=== PATIENT | female | born 1940 | race Caucasian/White ===

== ENCOUNTER 2016-11-23 08:27 | Inpatient (IN) | payer MEDICARE, OTHER ==
[~2016-11-23] VITALS: Ht 154.9 cm; Wt 85.7 kg
[~2016-11-23 08:27] MED LIST: CARV12.5 PO; FURO-570 PO; HYDR-4446 PO; INSU100S45 SUBQ
[2016-11-23 08:28] VITALS: BP 154/56
--- NOTE | 2016-11-23 08:35 | NUR ---
PT WHEELCHAIR ASSISTED TO BED 2 AT THIS TIME.
--- NOTE | 2016-11-23 08:40 | NUR ---
DR. GARCIA AT BEDSIDE,RT AND EMT FOR EKG AT BEDSIDE ALSO
--- NOTE | 2016-11-23 08:41 | NUR ---
PATIENT PRESENTS TO ED DUE SOB X YESTERDAY---USE +ACCESSORY MUSCLE USE AND CLAVICULAR MUSCLE, PUT PT ON O2 , PER PT SHE USE OXYGEN AT HOME LAST MONTH ADMITTED AT [facility] FOR SAME SYMPTOMS, NOTED MULTIPLE SCRATCHES ON RIGHT AND LEFT SHOULDER AND LOWER EXTREMITIES HX DM AND CHF ,AND HTN,DENIES N/V/D; SKIN IS PINK/WARM/DRY; AAOX4 WITH EVEN AND STEADY GAIT; LUNGS CLEAR BL; HR EVEN AND REGULAR; PT DENIES ANY FEVER, CP,AT THIS TIME; PATIENT STATES PAIN OF 0/10 AT THIS TIME; PATIENT POSITIONED FOR COMFORT; HOB ELEVATED; BEDRAILS UP X2; BED DOWN. XRAY AT BEDSIDE
[2016-11-23] MEDS ORDERED: NITROGLYCERIN 2% 1 GM PKT TP ONE (08:45)
[2016-11-23] MEDS ORDERED: methylPREDNISolone SS 125 MG/2 ML VIAL IVP ONE (08:45)
[2016-11-23] MEDS ORDERED: IPRATROPIUM 0.02% 0.5 MG/2.5 ML NEBU INH ONE (08:45)
[2016-11-23] MEDS ORDERED: ASPIRIN 81 MG TAB.CHEW PO ONE (08:45)
[2016-11-23] MEDS ORDERED: ALBUTEROL 0.083% 2.5 MG/3 ML NEBU INH ONE ×2 (08:45→10:15)
[2016-11-23 08:52] VITALS: BP 163/82
--- NOTE | 2016-11-23 08:52 | NUR ---
PT PLACED ON VISION BIPAP PER DR GARCIA FOR RESP DISTRESS DESATURATION ON ST 12\5 RR 14 FIO2 60 ALARMS ARE ON AND FUNCTIONAL BS IINSP WHHEZE I\L HHN GIVEN WITH 5MG ALBUTERL AND 0.5 MG ATROVENT BIPAP PLUGGED INTO RED OUTLET PT IN HF AWAKE WEARING F\F MASK SIZE LG GEL UNDER MASK
[2016-11-23 08:53] LABS: BLOOD GAS PH 7.299 (7.35-7.45)
[2016-11-23 08:54] LABS: BLOOD GAS BASE EXCESS -1.2 mmol/L (-2.0-2.0); BLOOD GAS HCO3 26.4 mmol/L
[2016-11-23 08:56] LABS: BLOOD GAS O2 SAT% 79.8 % (92.0-98.5)
--- NOTE | 2016-11-23 09:01 | NUR ---
ASKED PT IF SHE CAN GIVE ME URINE PER PT SHE JUST WENT TO THE BATHROOM BEFORE COMING, WILL INFORM DR. GARCIA.
--- NOTE | 2016-11-23 09:14 | NUR ---
PT ON BIPAP AT THIS TIME, DAUGHTER AT BEDSIDE, PT FITZO, SLIGHTLY SLEEPY AT THIS TIME, CLAIMED I FEEL MUCH BETTER, STILL WITH LABORED BREATHING.
--- NOTE | 2016-11-23 09:16 | NUR ---
DECREASED FIO2 TO [address] GARCIA INFORMED
--- NOTE | 2016-11-23 09:18 | NUR ---
DR. JOSE FUENTES PT UNABLE TO GIVE URINE AT THIS TIME.
[2016-11-23 09:19] LABS: HEMATOCRIT 48.7 % (36-48); HEMOGLOBIN 16.1 g/dL (12.0-16.0); MEAN CORPUSCULAR HEMOGLOBIN 28 pg (27-31); MEAN CORPUSCULAR HGB CONC 33 g/dL (33-37); MEAN CORPUSCULAR VOLUME 85 fL (80-94); PLATELET COUNT (AUTO) 226 K/uL (140-450); RED BLOOD CELL COUNT(AUTO) 5.75 MIL/uL (4.20-5.40); RED CELL DISTRIBUTION WIDTH 13.8 % (11.6-13.7); WHITE BLOOD COUNT (AUTO) 15.7 K/uL (4.8-10.8)
[2016-11-23 09:30] LABS: BAND % (MANUAL) 3 % (0-8); EOSINOPHILS % (MANUAL) 3 % (0-4); LYMPHOCYTES % (MANUAL) 8 % (20-46); MONOCYTES % (MANUAL) 3 % (5-12); NEUTROPHILS % (MANUAL) 83 (43-65)
[2016-11-23 09:41] LABS: LACTIC ACID 1.3 mmol/L (0.4-2.0)
--- NOTE | 2016-11-23 09:42 | NUR ---
PT EYES OPEN ON BIPAP WELL TOLERATED, STILL WITH LABORED BREATHING, VITAL SIGN STABLE, DAUGHTER AT BEDSIDE.
[2016-11-23 09:45] LABS: ANION GAP 13.1 (8-16); CALCIUM 9.5 mg/dL (8.5-10.1); CARBON DIOXIDE 27.9 mmol/L (21-32); CHLORIDE 102 mmol/L (98-107); CREATININE 1.1 mg/dL (0.6-1.3); GLUCOSE 122 mg/dL (74-106); SODIUM SERUM 139 mmol/L (136-145); UREA NITROGEN, BLOOD 16 mg/dL (7-18)
[2016-11-23 09:51] LABS: ALBUMIN 3.3 g/dL (3.4-5.0); ALKALINE PHOSPHATASE 92 U/L (46-116); ASPARTATE AMINOTRANSFERASE 17 U/L (15-37); TOTAL BILIRUBIN 0.3 mg/dL (0.0-1.0); TOTAL PROTEIN, SERUM 9.1 g/dL (6.4-8.2)
[2016-11-23] MEDS ORDERED: NACL 0.9% 500 ML IV ONE (10:00)
[2016-11-23] MEDS ORDERED: LEVOFLOXACIN 500 MG/D5W PREMIX 100 ML IV ONE (10:00)
[2016-11-23 10:01] LABS: ALANINE AMINOTRANSFERASE 16 U/L (12-78)
[2016-11-23 10:07] LABS: INR 1.2 (0.8-1.2); PARTIAL THROMBOPLASTIN TIME 26.5 secs (22-35.6); PROTHROMBIN TIME 11.5 secs (10.8-13.4)
--- NOTE | 2016-11-23 10:07 | NUR ---
CALL PLACE TO TELE WILL CALL BACK LATER, NURSE NOT AVAILABLE PER SHREYA
[2016-11-23] MEDS ORDERED: MAG SULF 2000 MG/WATER PREMIX 50 ML IV ONE (10:15)
[2016-11-23 10:20] VITALS: BP 159/74
--- NOTE | 2016-11-23 10:20 | NUR ---
BIPAP CHECK BS I\E WHEEZE HHN GIVEN I\L WITH 5 MG ALBUTEROL Addendum: 11/23/16 at 1032 by Alina Rodríguez RT GEL UNDER MASK VISITOR BEDSIDE
--- NOTE | 2016-11-23 10:28 | NUR ---
CALL PLACE TO TELE SPOKE TO MARTHA WILL CALL ME BACK FOR REPORT
--- NOTE | 2016-11-23 10:40 | NUR ---
REPORT GIVEN TO MARTHA
--- NOTE | 2016-11-23 10:46 | NUR ---
TRANSFER TO TELE ASSISTED BY RN/EMT/RT PT AAO, NO DISTRESS NOTED, WITH DAUGHTER
[2016-11-23] MEDS ORDERED: NACL 0.9% 1,000 ML IV SCH (10:51)
[2016-11-23] MEDS ORDERED: HYDROcodone/APAP 5/325 MG 1 TAB TAB PO PRN (10:55)
[2016-11-23] MEDS ORDERED: ACETAMINOPHEN 325 MG TAB PO PRN (10:55)
[2016-11-23] MEDS ORDERED: ONDANSETRON 4 MG/2 ML VIAL IVP PRN (10:55)
--- NOTE | 2016-11-23 10:55 | NUR ---
PT TRANSFERRED TO 109B 0N 50% VENTURI MASK PLACED ON VISION BIPAP AT 1100 SAME SETTINGS CONT.POX PLACED WITHOUT INCIDENT BMV HOB
--- NOTE | 2016-11-23 11:00 | NUR ---
RECEIVED PATIENT FROM ER WITH CC OF SHORTNESS OF BREATH. PT HAVE IV PATENT, NO SX OF INFILTRATION ON L AC IV ANTIBIOTIC IS HANGING. PTHAVE BIPAP IN PLACE SATING AT 92-93% PT IS ALERT AND ORIENTED ABLE TO VERBALIZE NEEDS AND WANTS. DAUGHTER AND GRANDAUGHTER AT THE BEDSIDE. PENDING EKG AT THIS TIME
[2016-11-23] MEDS ORDERED: ALBUTEROL SULFATE/IPRATROPIU 3 ML SOL IH PRN ×2 (11:15→15:00)
[2016-11-23] MEDS: ALBUTEROL SULFATE/IPRATROPIU 3 ML SOL IH SCH ×3 (11:25→19:25)
[2016-11-23 11:39] LABS: FREE T4 (FREE THYROXINE) 1.19 ng/dL (0.76-1.46); PHOSPHORUS 4.4 mg/dL (2.5-4.9); THYROID STIMULATING HORMONE 2.17 uIU/mL (0.34-3.76)
[2016-11-23] MEDS ORDERED: LEVOFLOXACIN 500 MG/D5W PREMIX 100 ML IV SCH (12:00)
--- NOTE | 2016-11-23 14:54 | NUR ---
CHECKED PATIENT. O2 SAT 94 % ON BIPAP. HR [address] DR CAPELLAN VISITED THE PATIETN. ORDERED TO KEEP PT ON BIPAP
[2016-11-23 15:02] VITALS: BP 125/77
--- NOTE | 2016-11-23 15:10 | NUR ---
PT REPORTED TO HAVE WHEEZING AND COUGH. COMMUNICATED WITH RT NICOLE , RT TO GIVE BREATHING TREATMENT
--- NOTE | 2016-11-23 15:16 | NUR ---
BIPAP CHECK BS EXP WHEEZE I\L HHN GIVEN WITH 3 MG DUONEB Addendum: 11/23/16 at 1527 by Alina Rodríguez RT GEL UNDER MASK 50% VENTURI ON AT BEDSIDE CONT POX
--- NOTE | 2016-11-23 15:40 | NUR ---
O2 SAT AT 95% WITH BIPAP AT FI02 45% NO REPORT OF DISCOMFORT PER PT
[2016-11-23] MEDS: BLOOD GLUCOSE MONITORING 1 DEV DEV FS SCH ×2 (16:12→21:07)
--- NOTE | 2016-11-23 16:12 | NUR ---
PT REPORTED " I AM NOT FEELING GOOD" NOTIFIED DR ESCAMILLA. VISITED THE PATIENT AT THE BEDSIDE. NO REPORT OF CHEST PAIN, NAUSEA OR VOMITING. BS LEVEL CHECKED AT 174. COVERAGE NOT GIVEN PER MD ESCAMILLA ORDER PATIENT HAVE NOT BEEN EATING SINCE AM.
--- NOTE | 2016-11-23 16:35 | NUR ---
02 SAT AT 95% PT REPORTS REDUCED FEELING OF DISTRESS. FAMILY AT THE BEDSIDE.
--- NOTE | 2016-11-23 16:35 | NUR ---
FAMILY SIGNED REQUEST TO RELEASE MDICAL RECORDS FROM [facility]. ENDORSED TO UNIT SEC SHREYA TO REQUEST MED RECORDS ORDERED BY DR ESCAMILLA
[2016-11-23] MEDS ORDERED: LORazepam 2 MG/ML VIAL IVP SCH (16:40)
--- NOTE | 2016-11-23 16:50 | NUR ---
BIPAP CHECK BS DIMINISHED GEL UNDER MASK CONT POX IN PLACE
[2016-11-23] MEDS ORDERED: FUROSEMIDE 20 MG/2 ML VIAL IVP SCH (17:00)
[2016-11-23] MEDS: DEXT 5% /NACL 0.9% 1,000 ML IV SCH ×2 (17:01→18:01)
[2016-11-23 17:02] VITALS: BP 128/55
[2016-11-23] MEDS ORDERED: FUROSEMIDE 40 MG TAB PO SCH (17:12)
[2016-11-23] MEDS ORDERED: glipiZIDE 10 MG TAB PO SCH (17:18)
[2016-11-23] MEDS ORDERED: metFORMIN 500 MG TAB PO SCH (17:19)
[2016-11-23] MEDS ORDERED: PARoxetine 20 MG TAB PO SCH (17:20)
--- NOTE | 2016-11-23 17:43 | NUR ---
PATIENT REFUSED MEDS AT THIS TIME PT IS HAVING DOPPLER PROCEDURE AT THE BEDSIDE WILL ATTEMPT TO GIVE MEDS ONCE DOPPLER PROCEDURE IS DONE
[2016-11-23] MEDS: GABAPENTIN 300 MG CAP PO SCH (18:00)
--- NOTE | 2016-11-23 18:00 | NUR ---
ADMINISTERED MEDS AND FED THE PT. PLACED PT ON VENTI MASK WITH 50% FI02. PT MINIMALLY TOLERATES THE VENTI MASK SATING RANGES 89-91% PATIENT WAS PLACED BACK ON BIPAP AFTER FOOD INTAKE. LEFT PT WITH CALL LIGHT WITHIN REACH, O2 SAT AT 95% WITH FI02 45% ON BIPAP PT DOPPLER FINISHED.
--- NOTE | 2016-11-23 18:28 | NUR ---
PLACED UNDERPADS ON THE PATEINT BED. PT REPORTED " I FEEL I PEED A LITTLE " CHECKED PT, PT IS DRY. 02 SAT AT 94 % WITH BIPAP FI02 45%
[2016-11-23 18:34] LABS: APPEARANCE,URINE CLEAR (CLEAR); BILIRUBIN,URINE NEGATIVE (NEGATIVE); BLOOD, URINE NEGATIVE (NEGATIVE); COLOR,URINE YELLOW (YELLOW); LEUKOCYTE ESTERASE ,URINE NEGATIVE (NEGATIVE); NITRITE, URINE NEGATIVE (NEGATIVE); PROTEIN,URINE NEGATIVE (NEGATIVE); UGLUCOSE NEGATIVE (NEGATIVE); UROBILINOGEN,URINE 0.2 EU/dL (0.2 - 1)
[2016-11-23 18:39] LABS: RBC,URINE NONE SEEN /HPF (0-5)
[2016-11-23 18:51] LABS: BACTERIA,URINE FEW /HPF (None Seen); SQUAMOUS EPITHELIAL CELL,UR 4-10 (MOD) /LPF (0-3 (FEW)); WBC,URINE 0-5 (RARE) /HPF (0-5)
--- NOTE | 2016-11-23 19:34 | NUR ---
ENDORSED TO NURSE DALILA FOR CONT OF CARE. PT O2 SAT WITH BIPAP AT 95 % CALL LIGHT WITHIN REACH. SIDE RAILS UP FOR SAFETY
--- NOTE | 2016-11-23 19:35 | NUR ---
;RECEIVED PT FROM ZAHIRA GARCIA PT IS AAOX4 ON BIPLAP RESP THERAPY IS HERE ASSISSTING THE PT IV ON LEFT AC INFUSING WELL ON TELEMETRY SR REPOSITIONED INITIAL ASSESSMENT DONE.
[2016-11-23 20:00] VITALS: BP 123/72
[2016-11-23] MEDS: CLINDAMYCIN 300 MG in DEXTROSE 5% 50 ML IV SCH (20:56)
[2016-11-23] MEDS: CARVEDILOL 6.25 MG TAB PO SCH (20:57)
[2016-11-23] MEDS: SACCHAROMYCES 250 MG CAP PO SCH (20:57)
[2016-11-23] MEDS: SIMVASTATIN 20 MG TAB PO SCH (20:58)
[2016-11-23] MEDS: INSULIN LISPRO SLIDING SCALE 100 UNITS/ML VIAL SUBQ PRN (21:00)
[2016-11-23] MEDS ORDERED: CARVEDILOL 6.25 MG TAB PO SCH (21:00)
[2016-11-23] MEDS ORDERED: FAMOTIDINE 20 MG/2 ML VIAL IV SCH (21:00)
--- NOTE | 2016-11-23 21:54 | NUR ---
BLOOD SUGAR TEST 259 COVERAGE WITH HUMALOG 6 UNITS SUBQ
[2016-11-24] VITALS: BP 126/63
--- NOTE | 2016-11-24 | NUR ---
;PT ON BIPAP GETTING SLEEP ON TELEMETRY SR NOT FEVER
--- NOTE | 2016-11-24 02:50 | NUR ---
REPOSITIONED Q2H , SLEEPING NOT SOB NOTED ON BIPAP , ON TELEMETRY SR
[2016-11-24 04:00] VITALS: BP 129/57
[2016-11-24] MEDS: CLINDAMYCIN 300 MG in DEXTROSE 5% 50 ML IV SCH ×3 (04:20→20:33)
--- NOTE | 2016-11-24 05:16 | NUR ---
SPONGE BATH GIVEN LINEN CHANGED, ON BIPAP NOT DISTRESS NOTED, REPOSITIONED Q2H
[2016-11-24] MEDS: INSULIN LISPRO SLIDING SCALE 100 UNITS/ML VIAL SUBQ PRN ×2 (05:54→12:20)
[2016-11-24] MEDS: BLOOD GLUCOSE MONITORING 1 DEV DEV FS SCH ×4 (05:58→20:40)
--- NOTE | 2016-11-24 06:10 | NUR ---
;BLOOD SUGAR TEST 186 COVERAGE WITH 2 UNITS HUMALOG
[2016-11-24 06:20] LABS: BASOPHILS % (AUTO) 0.3 % (0.0-2.0); EOSINOPHILS # (AUTO) 0.1 K/uL (0-0.4); EOSINOPHILS % (AUTO) 1.2 % (0.0-4.0); HEMATOCRIT 45.1 % (36-48); HEMOGLOBIN 14.7 g/dL (12.0-16.0); LYMPHOCYTES # (AUTO) 0.7 K/uL (2.5-16.5); LYMPHOCYTES % (AUTO) 6.2 % (20.5-51.1); MEAN CORPUSCULAR HEMOGLOBIN 28 pg (27-31); MEAN CORPUSCULAR HGB CONC 33 g/dL (33-37); MEAN CORPUSCULAR VOLUME 87 fL (80-94); MONOCYTES # (AUTO) 0.2 K/uL (0.8-1.0); MONOCYTES % (AUTO) 1.3 % (1.7-9.3); NEUTROPHILS # (AUTO) 10.8 K/uL (1.8-7.7); PLATELET COUNT (AUTO) 230 K/uL (140-450); RED CELL DISTRIBUTION WIDTH 13.9 % (11.6-13.7); WHITE BLOOD COUNT (AUTO) 11.8 K/uL (4.8-10.8)
[2016-11-24] MEDS: glipiZIDE 10 MG TAB PO SCH ×2 (06:45→16:59)
[2016-11-24 06:47] LABS: ANION GAP 13.6 (8-16); CALCIUM 9.3 mg/dL (8.5-10.1); CARBON DIOXIDE 28.7 mmol/L (21-32); CHLORIDE 102 mmol/L (98-107); CREATININE 1.4 mg/dL (0.6-1.3); GLUCOSE 196 mg/dL (74-106); POTASSIUM 5.3 mmol/L (3.5-5.1); SODIUM SERUM 139 mmol/L (136-145); UREA NITROGEN, BLOOD 25 mg/dL (7-18)
[2016-11-24 07:06] LABS: CHOL/HDL RATIO 3.6 (1-4.5); MAGNESIUM 2.8 mg/dL (1.8-2.4); PHOSPHORUS 7.5 mg/dL (2.5-4.9)
--- NOTE | 2016-11-24 07:15 | NUR ---
RECEIVED REPORT FROM THE NIGHTSHIFT NURSE AT BEDSIDE. PT IS AWAKE AND ORIENTED. SHE HAS A BIPAP MACHINE ON. PT IS IN STABLE CONDITION. NOTED THE IV ON L HAND 22G NS AT 20ML/HR. PT HAS GAUZE WRAPPED AROUND THE IV SITE. PT HAS SCD'S ON. PT IS BREATHING RAPIDLY, LABORED EVEN WITH THE BIPAP MACHINE. WILL CONTINUE TO MONITOR PT.
[2016-11-24 08:00] VITALS: BP 142/75
--- NOTE | 2016-11-24 08:00 | NUR ---
V/S WITHIN NORMAL RANGE. PT NEEDED THE BEDPAN. NOW RESTING COMFORTABLY IN BED IN SEMI MONTOYA'S POSITION. BIPAP STILL RUNNING.
[2016-11-24] MEDS: BUDESONIDE 0.5 MG/2 ML NEBU INH SCH ×2 (08:02→19:28)
[2016-11-24] MEDS: ALBUTEROL SULFATE/IPRATROPIU 3 ML SOL IH SCH ×4 (08:03→19:28)
--- NOTE | 2016-11-24 08:03 | NUR ---
RECEIVED ON A BIPAP VISION PLUGGED INTO RED OUTLET TOLERATING WELL WITHOUT INCIDENT TO A LARGE FACIAL MASK SECURED WITH HEAD STRAP CONTINUOS PULSE OXIMETRY AT BEDSIDE ON AND FUNCTIONING WELL LOW SATURATION ALARM SET AT 90% LOC ASLEEP EASILY AWAKENS PATIENT ASSESSMENT DONE HHN THERAPY GIVEN ORDERED TOLERATED WELL WITHOUT ADVERSE REACTIONS SATURATION 89%-90% ON FIO2 OF 45% POST THERAPY CHANGED FIO2 TO 50% TO KEEP SATURATION GREATER THAN 90%
--- NOTE | 2016-11-24 08:35 | NUR ---
PATIENT HAS BEEN SCREENED AND CATEGORIZED HIGH NUTRITION RISK. PATIENT WILL BE SEEN WITHIN 1-2 DAYS OF ADMISSION. 11/24/16-11/25/[address]
[2016-11-24] MEDS ORDERED: HYDROCHLOROTHIAZIDE 25 MG TAB PO SCH (09:00)
[2016-11-24] MEDS: metFORMIN 500 MG TAB PO SCH ×2 (09:20→16:59)
[2016-11-24] MEDS: PANTOPRAZOLE 40 MG INJ VIAL IVP SCH (09:20)
[2016-11-24] MEDS ORDERED: SODIUM POLYSTYRENE 15 GM/60 ML UDBTL PO SCH (09:20)
[2016-11-24] MEDS: GABAPENTIN 300 MG CAP PO SCH ×3 (09:21→16:59)
[2016-11-24] MEDS: FUROSEMIDE 40 MG TAB PO SCH (09:21)
[2016-11-24] MEDS: SACCHAROMYCES 250 MG CAP PO SCH ×2 (09:21→20:34)
[2016-11-24] MEDS: PARoxetine 20 MG TAB PO SCH (09:21)
[2016-11-24] MEDS: amLODIPine 5 MG TAB PO SCH (09:22)
[2016-11-24] MEDS: CARVEDILOL 6.25 MG TAB PO SCH ×2 (09:22→20:34)
[2016-11-24] MEDS: LISINOPRIL 20 MG TAB PO SCH (09:22)
--- NOTE | 2016-11-24 09:30 | NUR ---
ADMINISTERED MORNING MEDS. HAD TO TAKE THE BIPAP OFF AND THEN READMINISTER. PT TOLERATED WELL. WILL CONTINUE TO MONITOR PT. CALL LIGHT WITHIN REACH.
[2016-11-24 10:05] LABS: BLOOD GAS PH 7.298 (7.35-7.45)
[2016-11-24 10:06] LABS: BLOOD GAS BASE EXCESS -0.6 mmol/L (-2.0-2.0); BLOOD GAS O2 SAT% 99.2 % (92.0-98.5); BLOOD GAS PCO2 56.3 mmHg (20-50); BLOOD GAS PO2 174.6 mmHg
--- NOTE | 2016-11-24 11:11 | NUR ---
AWAKE AND ALERT REMAINS ON BIPAP TO MASK TOLERATING WELL WITHOUT ADVERSE REACTIONS NOTED SATURATION 97%-98% ON FIO2 OF 50% POST THERAPY TITRATED FIO2 TO 40% (ABG Pa02 174.6 mmHg) ZORA/RN NOTIFIED
--- NOTE | 2016-11-24 11:23 | NUR ---
CM NOTE INITIAL REVIEW SENT TO [facility] FAX# [phone] ATTN: OMAR DURBIN PH# [phone] EXT [phone]
[2016-11-24 12:00] VITALS: BP 124/56
--- NOTE | 2016-11-24 12:00 | NUR ---
PT IS DOING WELL. RT HAS BEEN IN AND OUT. PT IS TOLERATING THE BIPAP WELL. SON WAS HERE ASKING ABOUT HOW SHE IS DOING. EXPLAINED SHE IS STILL HAVING DIFFICULT TIME BREATHING WITHOUT THE BIPAP MACHINE. NO ORDERS FOR DISCHARGE OF YET. PT'S SON VERBALIZED UNDERSTANDING. WILL CONTINUE TO MONITOR PT.
[2016-11-24] MEDS: LEVOFLOXACIN 250 MG/D5 PREMIX 50 ML IV SCH (12:20)
--- NOTE | 2016-11-24 13:00 | NUR ---
ADMINISTERED CLINDAMYCIN AND ORAL MED. PT TOLERATED WELL. NO OTHER COMPLAINTS. WILL CONTINUE TO MONITOR PT.
--- NOTE | 2016-11-24 15:40 | NUR ---
ASLEEP RESTING WELL TOLERATING BIPAP TO MASK WELL WITHOUT INCIDENT PLUGGED INTO RED OUTLET CONTINUOS PULSE OXIMETRY ON AND FUNCTIONING WELL LOW SATURATION ALARM SET AT 90%
[2016-11-24 16:00] VITALS: BP 137/63
--- NOTE | 2016-11-24 17:41 | NUR ---
ASLEEP RESTING COMFORTABLY NO DISTRESS NOTED BREATH SOUNDS DIFFUSED EXP WHEEZE BILATERAL GOOD CHEST RISE TOLERATING BIPAP TO MASK WELL WITHOUT INCIDENT
--- NOTE | 2016-11-24 19:11 | NUR ---
PT SLEEPING WITH DAUGHTER STILL AT BEDSIDE. NO SIGNS OF DISTRESS. WILL CONTINUE TO MONITOR PT.
--- NOTE | 2016-11-24 19:15 | NUR ---
RECEIVE REPORT FROM DAY SHIFT NURSE RADHA BLAKELY. PATIENT IS AAOX4, DENIES PAIN. ON RESPI. TREATMENT AT THIS, NO S/S OF RESPI DISTRESS/DISCOMFORT NOTED. IV SITE IS PATENT AND INTACT, INFUSING WELL. PLAN OF CARE DISCUSSED, VERBALIZED UNDERSTANDING. SAFETY MEASURES CHECKED, CALL LIGHT WITHIN REACH. WILL CONTINUE TO MONITOR.
--- NOTE | 2016-11-24 19:43 | NUR ---
ENDORSED PT TO THE ZIGZAG ELASTIC ATTACHER AT BEDSIDE FOR CONTINUITY OF CARE. PT IS IN STABLE CONDITION.
[2016-11-24 20:00] VITALS: BP 125/53
[2016-11-24] MEDS: SIMVASTATIN 20 MG TAB PO SCH (20:34)
[2016-11-24] MEDS: DEXTROSE 50% 50 ML SYR IVP PRN (20:42)
--- NOTE | 2016-11-24 20:54 | NUR ---
BLOOD SUGAR CHECKED, BSL =54, PRN DEXTROSE 50 % ABBOJECT WAS GIVEN. WILL RECHECK BLOOD SUGAR.
--- NOTE | 2016-11-24 22:18 | NUR ---
BLOOD SUGAR CHECKED, BSL = 119. PATIENT IS SLEEPING BUT AROUSABLE BY HER NAME. NO SIGNS OF DISTRESS NOTED.
[2016-11-25] VITALS: BP 84/46
--- NOTE | 2016-11-25 | NUR ---
V/S CHECKED, BP= 84/46, ELEVATED FEET WITH PILLOW. CHARGE NURSE MADE AWARE.
--- NOTE | 2016-11-25 01:15 | NUR ---
V/S RECHECKED, BP= 117/57, P= 90 , SAT O2= 98%, R= 20. ON BIPAP, HAS O S/S OF RESPIRATORY DISTRESS/DISCOMFORT NOTED.
[2016-11-25 04:00] VITALS: BP 132/59
--- NOTE | 2016-11-25 04:00 | NUR ---
V/S CHECKED AND STABLE. HAS NO S/S OF RESPIRATORY DISTRESS/DISCOMFORT NOTED. SAFETY MEASURES CHECKED, CALL LIGHT WITHIN REACH.
[2016-11-25] MEDS: CLINDAMYCIN 300 MG in DEXTROSE 5% 50 ML IV SCH ×3 (04:03→20:29)
--- NOTE | 2016-11-25 06:12 | NUR ---
BLOOD SUGAR CHECKED, BSL = 95, NO INSULIN COVERAGE. AM CARE DONE, ALL NEEDS ATTENDED AND MET.
[2016-11-25] MEDS: BLOOD GLUCOSE MONITORING 1 DEV DEV FS SCH ×4 (06:34→20:44)
[2016-11-25] MEDS: glipiZIDE 10 MG TAB PO SCH ×2 (06:35→16:04)
[2016-11-25 06:46] LABS: BASOPHILS # (AUTO) 0.1 K/uL (0.00-0.22); BASOPHILS % (AUTO) 0.7 % (0.0-2.0); EOSINOPHILS # (AUTO) 0.1 K/uL (0-0.4); EOSINOPHILS % (AUTO) 0.7 % (0.0-4.0); HEMATOCRIT 43.7 % (36-48); HEMOGLOBIN 13.9 g/dL (12.0-16.0); LYMPHOCYTES # (AUTO) 2.1 K/uL (2.5-16.5); LYMPHOCYTES % (AUTO) 20.2 % (20.5-51.1); MEAN CORPUSCULAR HEMOGLOBIN 28 pg (27-31); MEAN CORPUSCULAR HGB CONC 32 g/dL (33-37); MEAN CORPUSCULAR VOLUME 87 fL (80-94); MONOCYTES # (AUTO) 0.6 K/uL (0.8-1.0); MONOCYTES % (AUTO) 5.5 % (1.7-9.3); NEUTROPHILS # (AUTO) 7.7 K/uL (1.8-7.7); NEUTROPHILS % (AUTO) 72.9 % (42.2-75.2); PLATELET COUNT (AUTO) 187 K/uL (140-450); RED BLOOD CELL COUNT(AUTO) 5.04 MIL/uL (4.20-5.40); RED CELL DISTRIBUTION WIDTH 13.8 % (11.6-13.7); WHITE BLOOD COUNT (AUTO) 10.6 K/uL (4.8-10.8)
[2016-11-25 06:52] LABS: ANION GAP 8.3 (8-16); CALCIUM 8.4 mg/dL (8.5-10.1); CARBON DIOXIDE 33.5 mmol/L (21-32); CHLORIDE 105 mmol/L (98-107); CREATININE 1.2 mg/dL (0.6-1.3); GLUCOSE 96 mg/dL (74-106); POTASSIUM 3.8 mmol/L (3.5-5.1); SODIUM SERUM 143 mmol/L (136-145); UREA NITROGEN, BLOOD 27 mg/dL (7-18)
[2016-11-25] MEDS: BUDESONIDE 0.5 MG/2 ML NEBU INH SCH ×2 (06:57→19:55)
[2016-11-25] MEDS: ALBUTEROL SULFATE/IPRATROPIU 3 ML SOL IH SCH ×4 (06:57→19:55)
[2016-11-25 07:05] LABS: ALBUMIN 2.6 g/dL (3.4-5.0); MAGNESIUM 2.5 mg/dL (1.8-2.4); PHOSPHORUS 3.7 mg/dL (2.5-4.9)
--- NOTE | 2016-11-25 07:05 | NUR ---
RECIVED PT ON BIPAP WITH SETTINGS CHARTED PT AWAKE ALERT ANXIOUS WITH BIPAP MACHINE WILL CONTINUE TO MONITOR PT GIVE BBEAK FROM BIPAP AND WATCH PO02 BIPAP PLUGGED INTO RD OUTLET AMBUBAG AT BEDSIDE
--- NOTE | 2016-11-25 07:22 | NUR ---
ENDORSED PT TO DAY SHIFT NURSE FOR CONTINUITY OF CARE. PT IS IN STABLE CONDITION.
--- NOTE | 2016-11-25 07:23 | NUR ---
RECEIVED REPORT FROM SOFTWARE PROJECT ENGINEER NURSE. PT IS AAOX4, DENIES PAIN/DISCOMFORT AT THIS TIME. SKIN IS DRY AND INTACT. IV IS PATENT AND INTACT. PT IS ON CONTINUOUS BIPAP - IPAP 12, EPAP 5, FIO2 40, RATE 14, VITALS STABLE. CALL LIGHT WITHIN REACH. WILL CONTINUE TO MONITOR.
--- NOTE | 2016-11-25 07:45 | NUR ---
ABG'S COMPLETED BY RT. PT MICHELLE WELL.
[2016-11-25 07:59] LABS: BLOOD GAS HCO3 32.3 mmol/L; BLOOD GAS PCO2 59.9 mmHg (20-50); BLOOD GAS PO2 89.3 mmHg
[2016-11-25 08:00] VITALS: BP 135/60
[2016-11-25 08:00] LABS: BLOOD GAS BASE EXCESS 4.9 mmol/L (-2.0-2.0); BLOOD GAS O2 SAT% 97.1 % (92.0-98.5)
--- NOTE | 2016-11-25 08:00 | NUR ---
REMOVED PT FROM BIPAP AND PLACED ON 4LPM OXYMISER PT AWAKE ALERT TRYING TO EAT BREAKFEAST RADHA MULLEN BEDSIDE WILL CONTINUE TO MONITOR PT
[2016-11-25] MEDS: CARVEDILOL 6.25 MG TAB PO SCH ×2 (08:21→20:29)
[2016-11-25] MEDS: metFORMIN 500 MG TAB PO SCH ×3 (08:21→16:12)
[2016-11-25] MEDS: FUROSEMIDE 40 MG TAB PO SCH (08:23)
[2016-11-25] MEDS: SACCHAROMYCES 250 MG CAP PO SCH ×2 (08:23→20:28)
[2016-11-25] MEDS: GABAPENTIN 300 MG CAP PO SCH ×3 (08:23→16:12)
[2016-11-25] MEDS: PARoxetine 20 MG TAB PO SCH (08:23)
[2016-11-25] MEDS: PANTOPRAZOLE 40 MG INJ VIAL IVP SCH (08:23)
[2016-11-25] MEDS: LISINOPRIL 20 MG TAB PO SCH (08:34)
[2016-11-25] MEDS: amLODIPine 5 MG TAB PO SCH (08:34)
--- NOTE | 2016-11-25 09:15 | NUR ---
CM NOTE CONCURRENT REVIEW SENT TO [facility] FAX# [phone] ATTN: ANDREW DURBIN RN PH# [phone] EXT [phone]
--- NOTE | 2016-11-25 11:33 | NUR ---
PT SITTING UP AT BEDSIDE, VITALS REMAIN STABLE.
[2016-11-25 12:00] VITALS: BP 113/66
[2016-11-25] MEDS: LEVOFLOXACIN 250 MG/D5 PREMIX 50 ML IV SCH (12:55)
--- NOTE | 2016-11-25 13:27 | NUR ---
PT RESTING, ALL NEEDS MET AT THIS TIME.
--- NOTE | 2016-11-25 14:00 | NUR ---
11/25/16 RD INITIAL ASSESSMENT COMPLETED PLEASE REFER TO NUTRITION ASSESSMENT UNDER CARE ACTIVITY FOR ESTIMATED NUTRITIONAL NEEDS. RD RECOMMENDATIONS: 1. CONTINUE CLEAR LIQUID DIET TOLERATED PER MD 2. WHEN MEDICALLY APPROPRIATE CONSIDER ADVANCE DIET TOLERATED TO CCHO 75 GM 3. ENCOURAGE INCREASED PO INTAKES 4. RD PROVIDED PT AND PT FAMILY WITH DM DIET EDUCATION 5. RD WILL F/U 3-5 DAYS; MODERATE RISK. HOOD [address] RD
[2016-11-25 16:00] VITALS: BP 114/51
[2016-11-25] MEDS: DEXT 5% /NACL 0.9% 1,000 ML IV SCH (16:02)
--- NOTE | 2016-11-25 16:15 | NUR ---
MED HELD DUE TO DECREASED BLOOD SUGAR.
--- NOTE | 2016-11-25 17:06 | NUR ---
VITALS REMAIN STABLE. WILL CONTINUE TO MONITOR.
--- NOTE | 2016-11-25 19:25 | NUR ---
RECEIVED PATIENT FROM DAY SHIFT RN FOR CONTINUITY OF CARE. PATIENT IS A&OX4, DISCUSSED PLAN OF CARE WITH PATIENT, VERBALIZED UNDERSTANDING. SHIFT ASSESSMENT DONE, VS TAKEN, STABLE. NO S/S OF RESPIRATORY DISTRESS NOTED ON 4L OXYMIZER, PT IN HIGH FOWLERS POSITION . PATIENT DENIES PAIN. IV LT WRIST 22 GAUGE PATENT AND INFUSING FLUIDS WELL. SKIN INTACT. SAFETY/FALL PRECAUTIONS ENFORCED. CALL LIGHT PLACED WITHIN REACH. WILL CONTINUE TO MONITOR.
[2016-11-25 19:49] VITALS: BP 145/68
--- NOTE | 2016-11-25 20:02 | NUR ---
INFORMED BY RT THAT PATIENT REFUSED BIPAP. NO S/S OF RESPIRATORY DISTRESS OR DISCOMFORT NOTED AT THIS TIME. WILL CONTINUE TO MONITOR PATIENT.
--- NOTE | 2016-11-25 20:02 | NUR ---
PT ASSESSMENT DONE, ADMINISTERED HHNTX, TOLERATED WELL. PT AWAKE ALERT ORIENTED, NO SIGN OF RESP DISTRESS OR SOB NOTED. PT REFUSED BIPAP AT THIS TIME, EXPLAINED TO PT THE BENEFITS OF THERAPY BUT STILL REFUSED TO USE BIPAP AT THIS TIME. PT ON 4LPM OXYMIZER, SP02 97%, TOLERATING WELL. HORACE GARCIA MADE AWARE. WILL CONT TO MONITOR PT.
[2016-11-25] MEDS: SIMVASTATIN 20 MG TAB PO SCH (20:28)
--- NOTE | 2016-11-25 20:42 | NUR ---
DUE MEDICATIONS ADMINISTERED, TOLERATED WELL. PATIENT IS STABLE. NO S/S OF RESPIRATORY DISTRESS NOTED ON 4L OXYMIZER. PATIENT DENIES PAIN. CALL LIGHT WITHIN REACH.
--- NOTE | 2016-11-25 22:46 | NUR ---
PATIENT IS SLEEPING IN HIGH FOWLERS POSITION. NO S/S OF DISTRESS OR DISCOMFORT NOTED.
[2016-11-26] VITALS: BP 121/80
--- NOTE | 2016-11-26 00:32 | NUR ---
VS TAKEN, STABLE. PATIENT IS SLEEPING NOW. ALL NEEDS MET AT THIS TIME.
--- NOTE | 2016-11-26 02:04 | NUR ---
ASSISTED PATIENT TO BEDSIDE COMMODE. NOW RESTING IN BED. PT DENIES PAIN. CALL LIGHT WITHIN REACH.
[2016-11-26 04:00] VITALS: BP 118/53
[2016-11-26] MEDS: CLINDAMYCIN 300 MG in DEXTROSE 5% 50 ML IV SCH ×3 (04:31→21:52)
--- NOTE | 2016-11-26 04:32 | NUR ---
DUE ANTIBIOTICS ADMINISTERED. VS TAKEN, STABLE. CHANGED IV DRESSING. CALL LIGHT WITHIN REACH.
--- NOTE | 2016-11-26 05:57 | NUR ---
BLOOD SUGAR TAKEN, 127, NO COVERAGE NEEDED. ASSISTED PATIENT TO BEDSIDE COMMODE, SMALL BOWEL MOVEMENT AND VOIDED. PT GAIT IS UNSTEADY. WILL CONTINUE TO MONITOR.
[2016-11-26 06:12] LABS: BASOPHILS # (AUTO) 0.1 K/uL (0.00-0.22); BASOPHILS % (AUTO) 0.8 % (0.0-2.0); EOSINOPHILS # (AUTO) 0.2 K/uL (0-0.4); EOSINOPHILS % (AUTO) 2.1 % (0.0-4.0); HEMATOCRIT 43.2 % (36-48); HEMOGLOBIN 14.1 g/dL (12.0-16.0); LYMPHOCYTES % (AUTO) 20.9 % (20.5-51.1); MEAN CORPUSCULAR HEMOGLOBIN 28 pg (27-31); MEAN CORPUSCULAR HGB CONC 33 g/dL (33-37); MEAN CORPUSCULAR VOLUME 87 fL (80-94); MONOCYTES # (AUTO) 0.7 K/uL (0.8-1.0); MONOCYTES % (AUTO) 7.4 % (1.7-9.3); NEUTROPHILS # (AUTO) 6.6 K/uL (1.8-7.7); NEUTROPHILS % (AUTO) 68.8 % (42.2-75.2); PLATELET COUNT (AUTO) 262 K/uL (140-450); RED BLOOD CELL COUNT(AUTO) 4.96 MIL/uL (4.20-5.40); RED CELL DISTRIBUTION WIDTH 13.7 % (11.6-13.7); WHITE BLOOD COUNT (AUTO) 9.7 K/uL (4.8-10.8)
[2016-11-26 06:29] LABS: ANION GAP 7.7 (8-16); CALCIUM 8.3 mg/dL (8.5-10.1); CARBON DIOXIDE 34.2 mmol/L (21-32); CHLORIDE 102 mmol/L (98-107); CREATININE 1.1 mg/dL (0.6-1.3); GLUCOSE 136 mg/dL (74-106); POTASSIUM 3.9 mmol/L (3.5-5.1); SODIUM SERUM 140 mmol/L (136-145); UREA NITROGEN, BLOOD 23 mg/dL (7-18)
[2016-11-26 06:31] LABS: MAGNESIUM 1.9 mg/dL (1.8-2.4); PHOSPHORUS 2.7 mg/dL (2.5-4.9)
[2016-11-26] MEDS: BLOOD GLUCOSE MONITORING 1 DEV DEV FS SCH ×4 (06:45→22:12)
--- NOTE | 2016-11-26 07:14 | NUR ---
ENDORSED PATIENT TO DAYSHIFT RN FOR CONTINUITY OF CARE, PATIENT IS IN STABLE CONDITION.
[2016-11-26] MEDS: ALBUTEROL SULFATE/IPRATROPIU 3 ML SOL IH SCH ×4 (07:15→20:07)
--- NOTE | 2016-11-26 07:15 | NUR ---
RECEIVED PT AWAKE AND LYING ON BED, AAOX4, HEAD OF BED ELEVATED AT SEMI FOWLERS POSITION, WITH O2 OXYMIZER AT 4LPM. NO S/S OF RESPIRATORY DISTRESS, O2 SAT AT 95%. WITH IV ACCESS AT LEFT WRIST 22G INFUSING FLUIDS WELL. SKIN IS INTACT. WITH 3 SIDERAILS UP AND BED AT LOWEST POSITION. DISCUSSED PLAN OF CARE, PT VERBALIZED UNDERSTANDING. SAFETY PRECAUTIONS ENFORCED. CALL LIGHT WITHIN REACH, WILL CONTINUE OT MONITOR.
[2016-11-26] MEDS: BUDESONIDE 0.5 MG/2 ML NEBU INH SCH ×2 (07:18→20:07)
[2016-11-26] MEDS: glipiZIDE 10 MG TAB PO SCH ×2 (07:59→16:59)
[2016-11-26 08:00] VITALS: BP 114/54
[2016-11-26] MEDS: SACCHAROMYCES 250 MG CAP PO SCH ×2 (08:35→21:51)
[2016-11-26] MEDS: metFORMIN 500 MG TAB PO SCH ×2 (08:35→17:15)
[2016-11-26] MEDS: GABAPENTIN 300 MG CAP PO SCH ×3 (08:35→17:15)
--- NOTE | 2016-11-26 08:35 | NUR ---
DUE MEDS GIVEN, PT TOLERATED WELL. PT HAS FAIR APPETITE. ALL NEEDS MET AT THIS TIME. CALL LIGHT WITHIN REACH, WILL CONTINUE TO MONITOR.
[2016-11-26] MEDS: FUROSEMIDE 40 MG TAB PO SCH (08:36)
[2016-11-26] MEDS: PARoxetine 20 MG TAB PO SCH (08:36)
[2016-11-26] MEDS: PANTOPRAZOLE 40 MG INJ VIAL IVP SCH (08:36)
[2016-11-26] MEDS: CARVEDILOL 6.25 MG TAB PO SCH ×2 (08:48→21:51)
[2016-11-26] MEDS: amLODIPine 5 MG TAB PO SCH (08:49)
[2016-11-26] MEDS: LISINOPRIL 20 MG TAB PO SCH (08:49)
--- NOTE | 2016-11-26 08:51 | NUR ---
CM NOTE CONCURRENT REVIEW SENT TO [facility] FAX# [phone] # [phone] ATTN: ANDREW DURBIN EXT [phone] Addendum: 11/26/16 at 0853 by Makenna Moore CM WILLIAN# [id number]
--- NOTE | 2016-11-26 09:57 | NUR ---
PT PLACED ON 2L NASAL CANNULA, SPO2 95% AT THIS TIME. PT NOT SOB AND NOT IN RESPIRATORY DISTRESS. WILL CONTINUE TO MONITOR.
--- NOTE | 2016-11-26 10:25 | NUR ---
PT AWAKE SITTING ON CHAIR EATING, WITH O2 2LPM VIA NC, SPO2 AT 91%. NO S/S OF DISTRESS, WILL CONTINUE TO MONITOR.
--- NOTE | 2016-11-26 11:16 | NUR ---
SS NOTE: SENT SHORT TERM SNF PLACEMENT INQUIRIES TO THE FOLLOWING INSURANCE CONTRACTED FACILITIES: [facility] & [facility]
--- NOTE | 2016-11-26 11:25 | NUR ---
IV ON LEFT HAND INFILTRATED, NEW IV ACCESS AT RIGHT HAND 22G INFUSING FLUIDS WELL. CALL LIGHT WITHIN REACH, WILL CONTINUE TO MONITOR.
[2016-11-26] MEDS: LEVOFLOXACIN 250 MG/D5 PREMIX 50 ML IV SCH (12:41)
--- NOTE | 2016-11-26 12:56 | NUR ---
SS NOTE: PER ADI FROM [facility], THEY ARE ABLE TO ACCEPT PT PER CAROLINA FROM [facility], THEY ARE ABLE TO ACCEPT PT I SPOKE WITH PT AND PT'S BOYFRIEND, LALO BEDSIDE REGARDING A SAFE D/C PLAN FOR PT. I INFORMED THEM THAT THERE ARE TWO FACILITIES THAT ARE ABLE TO ACCEPT PT FOR IV ABX AND PT/OT. PT REFUSED SNF AND STATED THAT SHE WANTS TO GO HOME. I EMPHASIZED TO PT THE IMPORTANCE OF A SAFE AND APPROPRIATE DISCHARGE PLAN BUT PT CONTINUED TO REFUSE SNF.
--- NOTE | 2016-11-26 13:50 | NUR ---
PER SON, PT DOES NOT WANT TO GO TO A SNF AND WOULD PREFER HOME HEALTH INSTEAD. NOTIFIED DR. ESCAMILLA. AT BEDSIDE.
--- NOTE | 2016-11-26 14:41 | NUR ---
SS NOTE: PER KING FROM [facility] ([phone]), THEY WILL FOLLOW UP WITH PT UPON DISCHARGE. SHE WAS MADE AWARE OF PT'S POSSIBLE D/C TOMORROW.
--- NOTE | 2016-11-26 14:43 | NUR ---
ASSISTED PT ON BED COMMODE, STILL ON O2 2LPM VIA NC, NO DISTRESS NOTED. SPO2 AT 94%
[2016-11-26 16:00] VITALS: BP 118/42
[2016-11-26] MEDS: DEXT 5% /NACL 0.9% 1,000 ML IV SCH (16:06)
--- NOTE | 2016-11-26 16:53 | NUR ---
PT SPO2 DROPS DOWN TO 86-87% WHEN ASLEEP. INFORMED RT. PT AWAKENED AND ENCOURAGED TO DEEP BREATHE AND TO USE INCENTIVE SPIROMETER. SPO2 GOES BACK TO 94-95 WHEN AWAKE.
--- NOTE | 2016-11-26 18:33 | NUR ---
NOTIFIED RT OF PT SPO2 AT 89-91 EVEN IF PT IS AWAKE. NO S/S OF DISTRESS AT THIS TIME. PT SITTING ON BED WATCHING TV. CALL LIGHT WITHIN REACH, WILL CONTINUE TO MONITOR
--- NOTE | 2016-11-26 19:14 | NUR ---
ENDORSED TO RADHA VU IN STABLE CONDITION FOR CONTINUITY OF CARE
--- NOTE | 2016-11-26 19:17 | NUR ---
RECEIVED PATIENT FROM HUMERA GARCIA FOR CONTINUITY OF CARE. PATIENT IS A&OX4, DISCUSSED PLAN OF CARE WITH PATIENT, VERBALIZED UNDERSTANDING. SHIFT ASSESSMENT DONE, VS TAKEN, STABLE. NO S/S OF RESPIRATORY DISTRESS NOTED ON 4L NASAL CANNULA. PATIENT DENIES PAIN. IV RT HAND 22 GAUGE PATENT AND INFUSING FLUIDS WELL, REINFORCED DRESSING. SKIN INTACT. SAFETY/FALL PRECAUTIONS ENFORCED. PT REFUSED SCDS AT THIS TIME. CALL LIGHT PLACED WITHIN REACH. WILL CONTINUE TO MONITOR.
[2016-11-26 20:00] VITALS: BP 139/60
--- NOTE | 2016-11-26 21:22 | NUR ---
PT LEFT UNIT TO CT SCAN.
--- NOTE | 2016-11-26 21:46 | NUR ---
PT RETURNED FROM CT.
[2016-11-26] MEDS: SIMVASTATIN 20 MG TAB PO SCH (21:51)
--- NOTE | 2016-11-26 21:52 | NUR ---
DUE ANTIBIOTICS AND MEDS ADMINISTERED, TOLERATED WELL. PATIENT DENIES PAIN. WILL CONTINUE TO MONITOR.
[2016-11-26] MEDS: DEXTROSE 50% 50 ML SYR IVP PRN (22:12)
--- NOTE | 2016-11-26 22:12 | NUR ---
BLOOD SUGAR TAKEN 55, PATIENT DRANK A JUICE. ADMINISTERED MED FOR DECREASED BLOOD SUGAR. WILL REASSESS. PT SHOWS NO S/S OF HYPOGLYCEMIA. WILL CONTINUE TO MONITOR.
--- NOTE | 2016-11-26 23:12 | NUR ---
BLOOD SUGAR NOW 132.
[2016-11-27] VITALS: BP 104/45
--- NOTE | 2016-11-27 00:06 | NUR ---
VITAL SIGNS TAKEN, STABLE. NO S/S OF DISTRESS NOTED ON 3L NC. WILL CONTINUE TO MONITOR.
--- NOTE | 2016-11-27 02:12 | NUR ---
ASSISTED PATIENT TO BEDSIDE COMMODE, HAD SMALL BOWEL MOVEMENT AND VOIDED. RETURNED TO BED AND MADE COMFORTABLE. CALL LIGHT WITHIN REACH.
--- NOTE | 2016-11-27 04:32 | NUR ---
PT IS AWAKE LAYING IN BED. NO S/S OF DISTRESS NOTED, O2 SAT 91% ON 4L NC.
[2016-11-27] MEDS: CLINDAMYCIN 300 MG in DEXTROSE 5% 50 ML IV SCH ×2 (05:55→13:06)
--- NOTE | 2016-11-27 06:00 | NUR ---
BLOOD SUGAR 109, NO INSULIN COVERAGE NEEDED. DUE IVPB ANTIBIOTICS ADMINISTERED, TOLERATED WELL. WILL CONTINUE TO MONITOR.
[2016-11-27 06:09] LABS: BASOPHILS # (AUTO) 0.1 K/uL (0.00-0.22); BASOPHILS % (AUTO) 1.2 % (0.0-2.0); EOSINOPHILS # (AUTO) 0.3 K/uL (0-0.4); HEMATOCRIT 42.4 % (36-48); HEMOGLOBIN 13.9 g/dL (12.0-16.0); LYMPHOCYTES % (AUTO) 20.8 % (20.5-51.1); MEAN CORPUSCULAR HEMOGLOBIN 28 pg (27-31); MEAN CORPUSCULAR HGB CONC 33 g/dL (33-37); MEAN CORPUSCULAR VOLUME 86 fL (80-94); MONOCYTES # (AUTO) 0.5 K/uL (0.8-1.0); MONOCYTES % (AUTO) 5.5 % (1.7-9.3); NEUTROPHILS % (AUTO) 69.5 % (42.2-75.2); PLATELET COUNT (AUTO) 200 K/uL (140-450); RED BLOOD CELL COUNT(AUTO) 4.94 MIL/uL (4.20-5.40); RED CELL DISTRIBUTION WIDTH 13.4 % (11.6-13.7); WHITE BLOOD COUNT (AUTO) 9.9 K/uL (4.8-10.8)
[2016-11-27] MEDS: BLOOD GLUCOSE MONITORING 1 DEV DEV FS SCH ×2 (06:30→11:44)
[2016-11-27 06:36] LABS: ANION GAP 6.7 (8-16); CALCIUM 8.3 mg/dL (8.5-10.1); CHLORIDE 101 mmol/L (98-107); GLUCOSE 97 mg/dL (74-106); POTASSIUM 3.7 mmol/L (3.5-5.1); SODIUM SERUM 140 mmol/L (136-145); UREA NITROGEN, BLOOD 14 mg/dL (7-18)
[2016-11-27 06:56] LABS: MAGNESIUM 1.5 mg/dL (1.8-2.4); PHOSPHORUS 2.6 mg/dL (2.5-4.9)
--- NOTE | 2016-11-27 07:23 | NUR ---
ENDORSED PATIENT TO ZORA GARCIA FOR CONTINUITY OF CARE, PATIENT IS IN STABLE CONDITION.
--- NOTE | 2016-11-27 07:24 | NUR ---
RECEIVED REPORT FROM THE RADIATION / CHEMISTRY TECHNICIAN NURSE AT BEDSIDE. PT IS STABLE AND ALERT. ALGERIAN SPEAKING. SHE DOES NOT C/O ANY PAIN AT THIS TIME. NOTED THE IV ON R AC 20G NS AT 150ML. NEED TO CHANGE FLUID BAG SOON. NO SIGNS OF DISTRESS. WILL BE BACK TO FURTHER ASSESS PT. ALL SAFETY MEASURES IN PLACE. ALL NEEDS MET. Addendum: 11/27/16 at 1052 by Tika Garcia RN NC O2 ON 4 L AT THAT TIME. Addendum: 11/27/16 at 1054 by Tika Garcia RN WRONG PT.
--- NOTE | 2016-11-27 07:24 | NUR ---
RECEIVED REPORT FROM THE ENERGY SCHEDULER NURSE AT BEDSIDE. PT IS STABLE AND ALERT. SPEAKS CAMEROONIAN. SHE IS OFF THE BI PAP NOW. SHE DOES NOT C/O ANY PAIN AT THIS TIME. NOTED THE IV R HAND 22G D5 NS @20 ML/HR. NO SIGNS OF DISTRESS. WILL BE BACK TO FURTHER ASSESS PT. ALL SAFETY MEASURES IN PLACE. ALL NEEDS MET. NC O2 ON 4 L AT THIS TIME.
[2016-11-27] MEDS: ALBUTEROL SULFATE/IPRATROPIU 3 ML SOL IH SCH ×3 (07:33→15:30)
[2016-11-27] MEDS: BUDESONIDE 0.5 MG/2 ML NEBU INH SCH (07:33)
--- NOTE | 2016-11-27 07:51 | NUR ---
SATURATION 97% ON SUPPLEMENTAL OXYGEN AT 3 LPM VIA NC POST HHN THERAPY TITRATED FIO2 TO 2 LPM ZORA/RN NOTIFIED
[2016-11-27 08:00] VITALS: BP 117/55
--- NOTE | 2016-11-27 08:00 | NUR ---
V.S WITHIN NORMAL RANGE. NOTED NC ON 2L. PT TOLERATING WELL. WANTS TO KNOW IF SHE WILL BE GOING HOME TODAY. WILL F/U WITH MD. SKIN IS INTACT NOTED FLUID D5NS AT 20. WILL CONTINUE TO MONITOR PT.
--- NOTE | 2016-11-27 08:15 | NUR ---
NEEDED ASSISTANCE TO THE BEDSIDE COMMODE. ASSISTED BACK.
[2016-11-27] MEDS: FUROSEMIDE 40 MG TAB PO SCH (08:41)
[2016-11-27] MEDS: metFORMIN 500 MG TAB PO SCH (08:41)
[2016-11-27] MEDS: PANTOPRAZOLE 40 MG INJ VIAL IVP SCH (08:41)
[2016-11-27] MEDS: SACCHAROMYCES 250 MG CAP PO SCH (08:41)
[2016-11-27] MEDS: CARVEDILOL 6.25 MG TAB PO SCH (08:42)
[2016-11-27] MEDS: glipiZIDE 10 MG TAB PO SCH (08:42)
[2016-11-27] MEDS: GABAPENTIN 300 MG CAP PO SCH ×2 (08:42→13:06)
[2016-11-27] MEDS: LISINOPRIL 20 MG TAB PO SCH (08:42)
[2016-11-27] MEDS: PARoxetine 20 MG TAB PO SCH (08:43)
[2016-11-27] MEDS: amLODIPine 5 MG TAB PO SCH (08:43)
--- NOTE | 2016-11-27 09:15 | NUR ---
PT ACCIDENTALLY PULLED OUT IV FROM SITE. CLEANED AND BANDAGED SITE. STARTED ANOTHER IV ON R HAND 22G. PT TOLERATED WELL. READMINISTERED IV FLUIDS. NO COMPLAINTS. WILL CONTINUE MONITOR.
--- NOTE | 2016-11-27 09:30 | NUR ---
NEEDED ASSISTANCE TO THE BED SIDE COMMODE. ASSISTED BACK TO BED.
[2016-11-27] MEDS ORDERED: MAG SULF 2000 MG/WATER PREMIX 50 ML IV SCH (10:00)
--- NOTE | 2016-11-27 11:00 | NUR ---
NEEDED ASSISTANCE TO THE BEDSIDE COMMODE. ASSISTED BACK IN BED.
--- NOTE | 2016-11-27 11:04 | NUR ---
AWAKE STABLE NO PULMONARY DISTRESS NOTED ENCOURAGED DEEP BREATHING DURING HHN THERAPY BIPAP VISION AT BEDSIDE FOR NOC AND PRN DURING DAY
[2016-11-27] MEDS: LEVOFLOXACIN 250 MG/D5 PREMIX 50 ML IV SCH (12:17)
--- NOTE | 2016-11-27 13:32 | NUR ---
SON IS HERE. ASKING TO FIND OUT WHEN HIS MOM WILL BE DISCHARGED. I TOLD HIM THAT SOON I HAVE AN ORDER FOR DC, I WILL PROCESS IT AND CALL HIM. SON VERBALIZED UNDERSTANDING.
[2016-11-27] MEDS ORDERED: METF500T4 PO (14:16)
[2016-11-27] MEDS ORDERED: PUL.5N INH (14:16)
[2016-11-27] MEDS ORDERED: GLIP10TA12 PO (14:16)
[2016-11-27] MEDS ORDERED: PAX20 PO (14:16)
[2016-11-27] MEDS ORDERED: LISI-420 PO (14:16)
[2016-11-27] MEDS ORDERED: SIMV20TA6 PO (14:16)
[2016-11-27] MEDS ORDERED: GABA-638 PO (14:16)
[2016-11-27] MEDS ORDERED: AMLO5TAB4 PO (14:16)
[2016-11-27] MEDS ORDERED: BLOO1STR10 FS (14:16)
[2016-11-27] MEDS ORDERED: HUMSLIDE SUBQ (14:16)
[2016-11-27] MEDS ORDERED: LEVO750T2 PO (14:17)
[2016-11-27] MEDS ORDERED: SACC250C1 PO (14:18)
[2016-11-27] MEDS ORDERED: CLIN300C2 PO (14:18)
[2016-11-27] MEDS ORDERED: ALBU0.0946 IH (14:19)
--- NOTE | 2016-11-27 15:30 | NUR ---
WENT OVER THE DISCHARGE INSTRUCTION WITH PT AND SON. ANSWERED ALL QUESTIONS. PT AND SON VERBALIZED UNDERSTANDING. REMOVED IV, CANNULA INTACT. NO BLEEDING NOTED. REMOVED THE ARM BANDS. PT SIGNED ALL THE NECESSARY D/C PAPERWORK. PT WILL CHANGE INTO HER OWN CLOTHES AND GATHER HER BELONGINGS. SHE WILL LET US KNOW WHEN SHE IS READY TO LEAVE SO WE CAN WHEEL HER OUT. PT HAS NO SIGNS OF DISTRESS OR COMPLAINTS.
--- NOTE | 2016-11-27 15:31 | NUR ---
AWAKE AND ALERT PATIENT UP SITTING ON SIDE OF BED PENDING DISCHARGE Addendum: 11/27/16 at 1545 by Jacobo Marroquin RT NO PULMONARY DISTRESS NOTED
--- NOTE | 2016-11-27 15:50 | NUR ---
PT WHEELED OUT BY SKID MAN WITH SON AT HER SIDE, CARRYING HER PERSONAL BELONGINGS AND D/C PACKET. PT IS ALERT AND ORIENTED AND STABLE. REMINDED PT ABOUT F/U WITH HER MD AND IMPORTANCE OF A GOOD DIET AND EXERCISE. PT AND SON VERBALIZED UNDERSTANDING.
--- NOTE | 2016-11-27 16:05 | NUR ---
CALLED [facility] AND LEFT MESSAGE FOR [facility] TO F/U WITH PT FOR HOME HEALTH SERVICES. PT WAS DISCHARGED TODAY.
--- NOTE | 2016-11-30 12:36 | NUR ---
DISCHARGE SUMMARY AND DISCHARGE ORDER FAXED TO [facility] AT [phone]
== END 2016-11-27 15:50 | disposition home health service (06) | DRG 177 ==
LOC: MED 08:27 → MTU 10:32
PROVIDERS: ADMIT Family Medicine; ATTEND Family Medicine
PROC: 5A09457 Assistance with Respiratory Ventilation, 24-96 Consecutive Hours, Continuous Positive Airway Pressure (ICD-10-PCS; principal; 2016-11-23)
DX: J69.0 Pneumonitis due to inhalation of food and vomit (principal); N17.0 Acute kidney failure with tubular necrosis; J96.21 Acute and chronic respiratory failure with hypoxia; E43 Unspecified severe protein-calorie malnutrition; J96.22 Acute and chronic respiratory failure with hypercapnia; I50.43 Acute on chronic combined systolic (congestive) and diastolic (congestive) heart failure; I13.0 Hypertensive heart and chronic kidney disease with heart failure and stage 1 through stage 4 chronic kidney disease, or unspecified chronic kidney disease; E66.2 Morbid (severe) obesity with alveolar hypoventilation; J44.1 Chronic obstructive pulmonary disease with (acute) exacerbation; I42.9 Cardiomyopathy, unspecified; E78.5 Hyperlipidemia, unspecified; I16.0 Hypertensive urgency; E87.5 Hyperkalemia; E83.39 Other disorders of phosphorus metabolism; E83.41 Hypermagnesemia; E86.0 Dehydration; F32.9 Major depressive disorder, single episode, unspecified; E83.42 Hypomagnesemia; E11.51 Type 2 diabetes mellitus with diabetic peripheral angiopathy without gangrene; N18.9 Chronic kidney disease, unspecified; Z68.36 Body mass index [BMI] 36.0-36.9, adult; Z91.14 Patient's other noncompliance with medication regimen; Z91.19 Patient's noncompliance with other medical treatment and regimen; Z79.899 Other long term (current) drug therapy; Z79.4 Long term (current) use of insulin; Z87.891 Personal history of nicotine dependence; Z86.711 Personal history of pulmonary embolism; Z86.718 Personal history of other venous thrombosis and embolism
CPT/HCPCS: 36415; 36600; 71010; 71250; 80048; 80053; 81001; 82040; 82150; 82803; 82948; 83036; 83605; 83690; 83735; 83880; 84100; 84439; 84443; 84484; 85025; 85610; 85730; 87040; 87081; 93005; 93925; 93970; 94640; 94660; 96374; 97110; 97530; 99291; C9113; J1644; J1815; J1940; J1956; J2060; J2930; J3475; J3490; J7030; J7042; J7060; J7613; J7620; J7626; J7644; Q0092

== ENCOUNTER 2017-02-28 19:20 | Inpatient (IN) | payer MEDICARE, MEDICAID ==
[~2017-02-28] VITALS: Ht 157.5 cm; Wt 85.3 kg
[~2017-02-28 19:20] MED LIST changes: +ALBU0.0946 IH; +AMLO5TAB4 PO; +BLOO1STR10 FS; +GABA-638 PO; +GLIP10TA12 PO; +HUMSLIDE SUBQ; +LISI-420 PO; +METF500T4 PO; +PAX20 PO; +PUL.5N INH; +SIMV20TA6 PO
[2017-02-28 20:00] VITALS: BP 97/46
--- NOTE | 2017-02-28 20:16 | NUR ---
PT TAKEN TO OF
--- NOTE | 2017-02-28 20:27 | NUR ---
76 Y/O F W/C/O L LEG PAIN AND SWELLING X 2 DAYS. MED HX DM. DENIES ANY CHEST PAIN. PT BS IS 87 NOW, PT TAKES NOVOLOG, MEGESTROL, AND LISINOPRIL 10MG AT HOME.
--- NOTE | 2017-02-28 20:27 | NUR ---
PT TAKEN TO BED 5
--- NOTE | 2017-02-28 20:30 | NUR ---
PA STUDENT EVALUATING PATIENT AT BEDSIDE
--- NOTE | 2017-02-28 20:34 | NUR ---
Dr. Ryder evaluating patient at bedside.
--- NOTE | 2017-02-28 21:19 | NUR ---
Ultrasound at bedside.
[2017-02-28 21:55] LABS: BASOPHILS # (AUTO) 0.2 K/uL (0.00-0.22); EOSINOPHILS # (AUTO) 0.4 K/uL (0-0.4); EOSINOPHILS % (AUTO) 2.6 % (0.0-4.0); HEMATOCRIT 43.5 % (36-48); HEMOGLOBIN 14.2 g/dL (12.0-16.0); LYMPHOCYTES # (AUTO) 1.7 K/uL (2.5-16.5); MEAN CORPUSCULAR HEMOGLOBIN 29 pg (27-31); MEAN CORPUSCULAR HGB CONC 33 g/dL (33-37); MEAN CORPUSCULAR VOLUME 88 fL (80-94); MONOCYTES # (AUTO) 0.8 K/uL (0.8-1.0); MONOCYTES % (AUTO) 4.7 % (1.7-9.3); NEUTROPHILS % (AUTO) 81.7 % (42.2-75.2); PLATELET COUNT (AUTO) 155 K/uL (140-450); RED BLOOD CELL COUNT(AUTO) 4.94 MIL/uL (4.20-5.40); RED CELL DISTRIBUTION WIDTH 14.5 % (11.6-13.7); WHITE BLOOD COUNT (AUTO) 17.1 K/uL (4.8-10.8)
[2017-02-28 22:04] LABS: ANION GAP 20.2 (8-16); CALCIUM 9.1 mg/dL (8.5-10.1); CARBON DIOXIDE 20.2 mmol/L (21-32); CHLORIDE 99 mmol/L (98-107); GLUCOSE 50 mg/dL (74-106); POTASSIUM 4.4 mmol/L (3.5-5.1); SODIUM SERUM 135 mmol/L (136-145); UREA NITROGEN, BLOOD 54 mg/dL (7-18)
[2017-02-28 22:19] LABS: INR 1.1 (0.8-1.2); PARTIAL THROMBOPLASTIN TIME 25.9 secs (22-35.6); PROTHROMBIN TIME 10.8 secs (10.8-13.4)
[2017-02-28] MEDS ORDERED: LISI10TA11 PO (22:26)
[2017-02-28] MEDS ORDERED: HEPARIN PER PHARMACY MC PRN ×2 (22:40→23:00)
[2017-02-28] MEDS ORDERED: hePARIN / DEXT 5% PREMIX 250 ML IV ONE (22:40)
[2017-02-28] MEDS ORDERED: hePARIN / DEXT 5% PREMIX 250 ML IV SCH (23:00)
[2017-02-28] MEDS ORDERED: HYDROcodone/APAP 5/325 MG 1 TAB TAB PO PRN (23:35)
[2017-02-28] MEDS ORDERED: MORPHINE SULFATE 2 MG/ML SYR IVP PRN (23:35)
[2017-02-28] MEDS ORDERED: ACETAMINOPHEN 325 MG TAB PO PRN (23:35)
[2017-02-28] MEDS ORDERED: ONDANSETRON 4 MG/2 ML VIAL IVP PRN (23:35)
[2017-02-28] MEDS ORDERED: DEXTROSE 50% 50 ML SYR IVP PRN (23:40)
--- NOTE | 2017-02-28 23:40 | NUR ---
Patient will be admitted to care of DR ESCAMILLA . Admited to TELE 126A. Will go to room 126A. Belongings list completed. Report to OLESYA GARCIA .
[2017-02-28] MEDS ORDERED: DEXTROSE 50% 50 ML SYR IVP ONE ×2 (23:50→23:56)
[2017-03-01] VITALS: BP 90/52
--- NOTE | 2017-03-01 | NUR ---
RECEIVED PT TRANSFERRED FROM ER VIA GURNEY, INITIAL ASSESSMENT STARTED, PT IS AAOX4, ABLE TO FOLLOW COMMANDS AND MAKE NEEDS KNOWN, DENIES PAIN, NO S/S OF SOB/DISTRESS, BREATHING EVEN AND UNLABORED, CLEAR LUNG SOUNDS, ON RA. ST ON TELE MONITOR, DENIES CHEST PAIN. SOFT ABDOMEN WITH ACTIVE BOWEL SOUNDS, CONTINENT B&B'S. WEAKNESS TO BLE, LEFT LOWER EXTREMITY SWOLLEN NOTED, PERIPHERAL LINE TO LEFT AC 20GA, INFILTRATED, REMOVED. IV SITE TO LEFT HAND, 22GA, RUNNING HEPARIN DRIP ORDERED. AFEBRILE, SKIN IS WARM AND DRY TO TOUCH, RED SPOTS RASH NOTED TO BACK, BUE AND BLE. EXPLAINED POC AND ORIENTATED ROOM TO PATIENT, PATIENT VERBALIZED UNDERSTANDING, SAFETY MEASURES IN PLACE, CALL LIGHT WITHIN REACH, WILL CONTINUE TO MONITOR.
[2017-03-01 00:28] LABS: FREE T4 (FREE THYROXINE) 1.22 ng/dL (0.76-1.46)
[2017-03-01] MEDS: NACL 0.9% 1,000 ML IV SCH ×3 (00:28→14:01)
[2017-03-01 00:29] LABS: THYROID STIMULATING HORMONE 2.85 uIU/mL (0.34-3.76)
--- NOTE | 2017-03-01 00:30 | NUR ---
ACCU CHECK ON ADMISSION WITH RESULT OF 60MG/DL, D50 WAS GIVEN AT ER BEFORE TRANSFER PER REPORT, PT STATED HAVE NOT EAT ANYTHING SINCE 12PM YESTERDAY, FOOD OFFERED, WILL RECHECK BS LATER.
--- NOTE | 2017-03-01 01:00 | NUR ---
RECHECKED BS LEVEL WITH RESULT OF 82 MG/DL, WILL CONTINUE TO MONITOR.
[2017-03-01 04:00] VITALS: BP 85/42
--- NOTE | 2017-03-01 04:00 | NUR ---
PT IS ASLEEP IN BED, NO S/S OF DISTRESS, ABLE TO SELF TURN WITH ASSIST. VSS.
[2017-03-01 05:27] LABS: INR 1.1 (0.8-1.2); PARTIAL THROMBOPLASTIN TIME 45.5 secs (22-35.6); PROTHROMBIN TIME 10.9 secs (10.8-13.4)
--- NOTE | 2017-03-01 05:36 | NUR ---
PTT RESULT OF 45.5, NO CHANGE OF HEPARIN DOSAGE AT THIS TIME.
[2017-03-01 06:43] LABS: BASOPHILS # (AUTO) 0.2 K/uL (0.00-0.22); EOSINOPHILS # (AUTO) 0.6 K/uL (0-0.4); EOSINOPHILS % (AUTO) 3.6 % (0.0-4.0); HEMATOCRIT 37.3 % (36-48); HEMOGLOBIN 12.4 g/dL (12.0-16.0); LYMPHOCYTES % (AUTO) 23.8 % (20.5-51.1); MEAN CORPUSCULAR HEMOGLOBIN 29 pg (27-31); MEAN CORPUSCULAR HGB CONC 33 g/dL (33-37); MEAN CORPUSCULAR VOLUME 88 fL (80-94); MONOCYTES # (AUTO) 0.9 K/uL (0.8-1.0); MONOCYTES % (AUTO) 5.3 % (1.7-9.3); NEUTROPHILS # (AUTO) 11.2 K/uL (1.8-7.7); NEUTROPHILS % (AUTO) 66.3 % (42.2-75.2); PLATELET COUNT (AUTO) 145 K/uL (140-450); RED BLOOD CELL COUNT(AUTO) 4.23 MIL/uL (4.20-5.40); RED CELL DISTRIBUTION WIDTH 14.7 % (11.6-13.7); WHITE BLOOD COUNT (AUTO) 16.9 K/uL (4.8-10.8)
[2017-03-01] MEDS: BLOOD GLUCOSE MONITORING 1 DEV DEV FS SCH ×4 (06:49→20:26)
[2017-03-01 07:05] LABS: CALCIUM 8.7 mg/dL (8.5-10.1); GLUCOSE 137 mg/dL (74-106); UREA NITROGEN, BLOOD 57 mg/dL (7-18)
[2017-03-01 07:11] LABS: MAGNESIUM 2.7 mg/dL (1.8-2.4); PHOSPHORUS 6.6 mg/dL (2.5-4.9)
[2017-03-01 07:15] LABS: ANION GAP 19.3 (8-16); CARBON DIOXIDE 20.2 mmol/L (21-32); CHLORIDE 99 mmol/L (98-107); POTASSIUM 4.5 mmol/L (3.5-5.1); SODIUM SERUM 134 mmol/L (136-145)
[2017-03-01] MEDS ORDERED: ALBUTEROL SULFATE/IPRATROPIU 3 ML SOL IH PRN (07:15)
--- NOTE | 2017-03-01 07:20 | NUR ---
REPORT GIVEN TO RADHA VU AND DEION RN AT BEDSIDE FOR CONTINUE OF CARE, PT IS IN STABLE CONDITION AT THIS TIME.
[2017-03-01 07:23] LABS: CREATININE 6.6 mg/dL (0.6-1.3)
[2017-03-01] MEDS ORDERED: BUDESONIDE 0.5 MG/2 ML NEBU INH SCH (07:30)
--- NOTE | 2017-03-01 07:45 | NUR ---
REPORT RECEIVED FROM RADHA DACOSTA. PT IS A/O X4. BILATERAL PERRLA NOTED IN EYES. DENIES ANY PAIN. PT SATURATING AT 92% ON RA. ST ON MONITOR. SKIN IS INTACT. GENERALIZED RASH NOTED. NO C/O ITCHING. LEFT LOWER EXTREMITY SWELLING NOTED. LEFT HAND 22 GAUGE IV NOTED. INTACT AND PATENT. HEPARIN DRIP CONTINUED. NO S/SX OF BLEEDING NOTED. SAFETY PRECAUTION MAINTAINED. BED AT LOWEST SETTING. CALL LIGHT WITHIN REACH. WILL CONTINUE TO MONITOR FOR CHANGES.
[2017-03-01 08:00] VITALS: BP 110/50
[2017-03-01] MEDS ORDERED: INSULIN LISPRO 100 UNITS/ML VIAL SUBQ SCH ×2 (08:11→16:30)
[2017-03-01] MEDS: LISINOPRIL 10 MG TAB PO SCH ×2 (08:37→20:35)
--- NOTE | 2017-03-01 08:38 | NUR ---
CHECKED BP: 86/61, HELD LISINOPRIL. CHECKED BS: 81, HELD HUMALOG.
--- NOTE | 2017-03-01 09:11 | NUR ---
FNS REFERRAL RECEIVED ON 03/01/17 FOR UNCONTROLLED DM. REFERRAL DOES NOT MEET HIGH RISK CRITERIA PER HOSPITAL POLICY. PATIENT WILL BE SEEN AND ASSESSED ACCORDING TO THE NUTRITION CARE POLICY. PATIENT HAS BEEN SCREENED AND CATEGORIZED MODERATE NUTRITION RISK. PATIENT WILL BE SEEN WITHIN 3-5 DAYS OF ADMISSION. 03/03/17-03/05/[address]
[2017-03-01] MEDS: hePARIN / DEXT 5% PREMIX 250 ML IV SCH ×2 (10:38→18:52)
--- NOTE | 2017-03-01 10:39 | NUR ---
ADJUSTED HEPARIN DRIP PER PROTOCOL. WILL CONTINUE TO MONITOR.
[2017-03-01 11:37] LABS: INR 1.1 (0.8-1.2); PROTHROMBIN TIME 10.9 secs (10.8-13.4)
--- NOTE | 2017-03-01 11:43 | NUR ---
IV CAME OUT, CANNULA INTACT. STARTED NEW IV TO RIGHT WRIST #22, PATENT AND INTACT. CHECKED BS: 57, ADMINISTERED D50 PER PROTOCOL. PT TOLERATED WELL. WILL CONTINUE TO MONITOR.
[2017-03-01 11:56] LABS: PARTIAL THROMBOPLASTIN TIME 51.1 secs (22-35.6)
[2017-03-01 12:00] VITALS: BP 103/69
--- NOTE | 2017-03-01 13:05 | NUR ---
CHECKED ON PT. ALL NEEDS MET AT THIS TIME. CALL LIGHT WITHIN REACH.
--- NOTE | 2017-03-01 13:31 | NUR ---
PATIENT WITH PHYSICAL THERAPIST
--- NOTE | 2017-03-01 14:56 | NUR ---
FAXED INITIAL REVIEW TO [facility] [phone] PHONE DONNA [phone]
[2017-03-01] MEDS ORDERED: RANI150C PO (15:09)
[2017-03-01] MEDS ORDERED: INSU-1163 SQ (15:09)
[2017-03-01] MEDS ORDERED: PARO-42 PO (15:09)
[2017-03-01] MEDS ORDERED: METF10002 PO (15:09)
[2017-03-01] MEDS ORDERED: CARV12.52 PO (15:09)
[2017-03-01] MEDS ORDERED: GLIP10TA12 PO (15:09)
[2017-03-01] MEDS ORDERED: NYST1POW8 TP (15:09)
[2017-03-01] MEDS ORDERED: SIMV20TA6 PO (15:09)
[2017-03-01] MEDS ORDERED: GABA-638 PO (15:09)
[2017-03-01] MEDS ORDERED: MEGE40SU PO (15:09)
[2017-03-01] MEDS ORDERED: LANTUS SC (15:09)
[2017-03-01 16:00] VITALS: BP 112/66
[2017-03-01] MEDS: WARFARIN 5 MG TAB PO SCH (16:56)
--- NOTE | 2017-03-01 17:06 | NUR ---
MEDICATION GIVEN ORDERED. ALL QUESTIONS ANSWERED. TOLERATED WELL.
--- NOTE | 2017-03-01 17:30 | NUR ---
COLLECTED URINE SPECIMEN. SENT TO LAB
[2017-03-01 17:46] LABS: INR 1.1 (0.8-1.2)
[2017-03-01 17:47] LABS: APPEARANCE,URINE HAZY (CLEAR); BLOOD, URINE 1+ (NEGATIVE); COLOR,URINE YELLOW (YELLOW); LEUKOCYTE ESTERASE ,URINE TRACE (NEGATIVE); NITRITE, URINE NEGATIVE (NEGATIVE); PH,URINE 5.5 (5.0-9.0); PROTEIN,URINE 1+ (NEGATIVE); UGLUCOSE NEGATIVE (NEGATIVE); UROBILINOGEN,URINE 0.2 EU/dL (0.2 - 1)
[2017-03-01 17:50] LABS: BILIRUBIN,URINE NEGATIVE (NEGATIVE)
[2017-03-01 17:51] LABS: BACTERIA,URINE 1+ /HPF (None Seen); RBC,URINE 0-5 /HPF (0-5)
[2017-03-01 17:52] LABS: HYALINE CASTS, URINE 0-10 /LPF (None Seen); URINE AMORPHOUS URATE 2+ /HPF (None Seen)
--- NOTE | 2017-03-01 19:15 | NUR ---
RECEIVED REPORT FROM HORACE RN AND DEION RN AT BEDSIDE, PT IS AAOX4, ABLE TO FOLLOW COMMANDS AND MAKE NEEDS KNOWN, DENIES PAIN, NO S/S OF SOB/DISTRESS, BREATHING EVEN AND UNLABORED, CLEAR LUNG SOUNDS, ON RA. ST ON TELE MONITOR, DENIES CHEST PAIN. SOFT ABDOMEN WITH ACTIVE BOWEL SOUNDS, CONTINENT B&B'S. WEAKNESS TO BLE, LEFT LOWER EXTREMITY SWOLLEN NOTED, PERIPHERAL LINE LEFT HAND, 22GA, RUNNING HEPARIN DRIP AND 1/2 NS ORDERED. AFEBRILE, SKIN IS WARM AND DRY TO TOUCH, RED SPOTS RASH NOTED TO ALL OVER THE BODY, MD AWARE PER REPORT. EXPLAINED POC TO PATIENT, PATIENT VERBALIZED UNDERSTANDING, SAFETY MEASURES IN PLACE, CALL LIGHT WITHIN REACH, WILL CONTINUE TO MONITOR.
--- NOTE | 2017-03-01 19:24 | NUR ---
CARE ENDORSED TO RADHA DACOSTA. PT IS STABLE.
[2017-03-01 20:00] VITALS: BP 135/51
[2017-03-01] MEDS: CARVEDILOL 12.5 MG TAB PO SCH (20:34)
[2017-03-01] MEDS: SIMVASTATIN 20 MG TAB PO SCH (20:34)
[2017-03-01] MEDS: NYSTATIN POW 100 MU/GM 15 GM BTL TP SCH (20:35)
[2017-03-01] MEDS: INSULIN LISPRO SLIDING SCALE 100 UNITS/ML VIAL SUBQ PRN (20:36)
--- NOTE | 2017-03-01 20:45 | NUR ---
ACCU CHECK PERFORMED WITH 177MG/DL, 2 UNITS HUMALOG GIVEN ORDERED, SCHEDULED MEDICATION GIVEN, PT TOLERATED WELL.
[2017-03-01] MEDS ORDERED: NYSTATIN TP SCH (21:00)
[2017-03-01] MEDS ORDERED: NON-FORMULARY ITEM (Ranitidine HCl (Ranitidine Hcl) 150 MG) PO SCH (21:00)
[2017-03-02] VITALS: BP 87/50
--- NOTE | 2017-03-02 | NUR ---
PT REQUESTED O2 DUE TO C/O DIFFICULT BREATHING, O2 SAT AT 93%, PT STATED SHE HAS O2 AT HOME, RT NOTIFIED, OK TO GIVE O2 AT 2L VIA NC.
[2017-03-02 04:00] VITALS: BP 118/66
--- NOTE | 2017-03-02 04:00 | NUR ---
PT IS RESTING IN BED, NO S/S OF DISTRESS, VSS.
[2017-03-02] MEDS: NACL 0.9% 1,000 ML IV SCH (05:30)
[2017-03-02] MEDS: BLOOD GLUCOSE MONITORING 1 DEV DEV FS SCH ×4 (06:00→21:41)
[2017-03-02 06:59] LABS: CALCIUM 8.2 mg/dL (8.5-10.1); CREATININE 3.7 mg/dL (0.6-1.3); GLUCOSE 150 mg/dL (74-106); UREA NITROGEN, BLOOD 54 mg/dL (7-18)
[2017-03-02 07:04] LABS: CHLORIDE 103 mmol/L (98-107)
[2017-03-02 07:08] LABS: INR 1.2 (0.8-1.2); PROTHROMBIN TIME 11.9 secs (10.8-13.4)
[2017-03-02 07:09] LABS: MAGNESIUM 2.4 mg/dL (1.8-2.4); PHOSPHORUS 5.6 mg/dL (2.5-4.9)
[2017-03-02 07:17] LABS: ANION GAP 17.4 (8-16); CARBON DIOXIDE 19.5 mmol/L (21-32); POTASSIUM 4.9 mmol/L (3.5-5.1); SODIUM SERUM 135 mmol/L (136-145)
--- NOTE | 2017-03-02 07:20 | NUR ---
REPORT GIVEN TO RADHA THOMPSON AT BEDSIDE FOR CONTINUE OF CARE, PT IS IN STABLE CONDITION AT THIS TIME.
[2017-03-02 07:24] LABS: BASOPHILS # (AUTO) 0.2 K/uL (0.00-0.22); BASOPHILS % (AUTO) 1.9 % (0.0-2.0); EOSINOPHILS # (AUTO) 0.8 K/uL (0-0.4); EOSINOPHILS % (AUTO) 6.6 % (0.0-4.0); HEMATOCRIT 36.5 % (36-48); HEMOGLOBIN 12.3 g/dL (12.0-16.0); LYMPHOCYTES # (AUTO) 2.8 K/uL (2.5-16.5); MEAN CORPUSCULAR HEMOGLOBIN 30 pg (27-31); MEAN CORPUSCULAR HGB CONC 34 g/dL (33-37); MEAN CORPUSCULAR VOLUME 88 fL (80-94); MONOCYTES # (AUTO) 0.8 K/uL (0.8-1.0); MONOCYTES % (AUTO) 6.5 % (1.7-9.3); NEUTROPHILS # (AUTO) 8.1 K/uL (1.8-7.7); PLATELET COUNT (AUTO) 165 K/uL (140-450); RED BLOOD CELL COUNT(AUTO) 4.17 MIL/uL (4.20-5.40); RED CELL DISTRIBUTION WIDTH 14.4 % (11.6-13.7); WHITE BLOOD COUNT (AUTO) 12.7 K/uL (4.8-10.8)
--- NOTE | 2017-03-02 07:30 | NUR ---
RECEIVED REPORT FROM OLESYA GARCIA .PT IS AWAKE, ALERT, ABLE TO FOLLOW COMMANDS .ON ROOM AIR, NO S/S OF SOB/DISTRESS, ST ON TELE MONITOR, DENIES CHEST PAIN. SOFT ABDOMEN WITH ACTIVE BOWEL SOUNDS, WEAKNESS TO BLE, LEFT LOWER EXTREMITY SWOLLEN NOTED, PERIPHERAL LINE LEFT HAND, 22GA, RUNNING HEPARIN DRIP AT 1500 UNITS/HR AND 1/2 NS ORDERED. SKIN IS WARM AND DRY TO TOUCH, RED SPOTS RASHES NOTED TO ALL OVER THE BODY, MD AWARE PER REPORT. POC EXPLAINED TO PATIENT, PATIENT VERBALIZED UNDERSTANDING, SAFETY MEASURES IN PLACE, CALL LIGHT WITHIN REACH, WILL CONTINUE TO MONITOR
[2017-03-02 08:00] VITALS: BP 123/78
[2017-03-02 09:12] LABS: T4 (THYROXINE) 7.5 ug/dL (4.5-12.0)
[2017-03-02] MEDS: GABAPENTIN 300 MG CAP PO SCH (09:14)
[2017-03-02] MEDS: PARoxetine 20 MG TAB PO SCH (09:14)
[2017-03-02] MEDS: LISINOPRIL 10 MG TAB PO SCH ×2 (09:15→21:34)
[2017-03-02] MEDS: CARVEDILOL 12.5 MG TAB PO SCH ×2 (09:15→21:33)
[2017-03-02] MEDS: MEGESTROL 40 MG TAB PO SCH (09:16)
[2017-03-02] MEDS: NYSTATIN POW 100 MU/GM 15 GM BTL TP SCH ×2 (09:16→21:34)
[2017-03-02] MEDS: FAMOTIDINE 20 MG TAB PO SCH (09:16)
--- NOTE | 2017-03-02 11:20 | NUR ---
FAXED CONCURRENT REVIEW TO [facility] [phone] PHONE DONNA [phone]
--- NOTE | 2017-03-02 11:25 | NUR ---
RECEIVED CRITICAL REPORT aPTT 111.1 @1023, HOLD HEPARIN DRIP FOR 1 HOUR, RESTART HEPARIN DRIP AT 1123 PER PROTOCOL.
[2017-03-02 12:00] VITALS: BP 120/68
[2017-03-02] MEDS: INSULIN LISPRO SLIDING SCALE 100 UNITS/ML VIAL SUBQ PRN (12:00)
--- NOTE | 2017-03-02 12:02 | NUR ---
IV CAME OUT, CANNULA INTACT. WILL START NEW IV. REORIENTED PT SHE IS IN HOSPITAL.PT'S SON AT BEDSIDE TO SEE PT, UPDATED PT'S CONDITION. PER PT'S SON, PT HAS DEMENTIA SOMETIMES, IT COMES AND GOES.
--- NOTE | 2017-03-02 12:40 | NUR ---
PT REFUSED TO INSERT IV. RISKS AND BENEFITS EXPLAINED TO PT. PT STILL REFUSED TO INSERT IV. CHARGE NURSE AWARE.
--- NOTE | 2017-03-02 13:50 | NUR ---
AWARE PT REFUSED TO INSERT IV.
--- NOTE | 2017-03-02 14:30 | NUR ---
EXPLAINED AGAIN TO PT REGARDING THE BENEFITS AND RISKS OF REFUSING IV. PT AGREED TO INSERT NEW IV.
--- NOTE | 2017-03-02 15:02 | NUR ---
CALLED ICU CHARGE NURSE ARABELLA TO HELP FOR IV. PER ARABELLA IT IS HARD TO FIND IV. CHARGE NURSE SHANE AND DR. MALDONADO AWARE.
--- NOTE | 2017-03-02 15:30 | NUR ---
CALLED PT'S SON MIGUEL A, VIKKI [phone], EXPLAINED TO HIM PT NEEDS PICC LINE, PER VIKKI, IT IS OK TO INSERT PICC LINE. TELEPHONE CONSENT OBTAINED. CHARGE NURSE AWARE.
[2017-03-02 16:00] VITALS: BP 117/67
--- NOTE | 2017-03-02 16:12 | NUR ---
INSERTED IV #24 TO RIGHT FOREARM. PER CHARGE NURSE HOLD HEPARIN DRIP PT WILL HAVE PICC INSERTION LATER.
[2017-03-02 16:55] LABS: INR 1.3 (0.8-1.2); PARTIAL THROMBOPLASTIN TIME 28.2 secs (22-35.6)
[2017-03-02] MEDS ORDERED: WARFARIN 5 MG TAB PO ONE (17:00)
--- NOTE | 2017-03-02 17:00 | NUR ---
PT PULLED OUT IV WHILE PT TRIED TO GET OUT OF BED, CANNULA INTACT. CHARGE NURSE AWARE.
[2017-03-02] MEDS: WARFARIN 5 MG TAB PO SCH (17:55)
--- NOTE | 2017-03-02 18:05 | NUR ---
PT STAYING IN BED, NO S/S OF RESPIRATORY DISTRESS NOTED. WILL CONTINUE TO MONITOR.
[2017-03-02 20:00] VITALS: BP 135/96
--- NOTE | 2017-03-02 20:00 | NUR ---
RECEIVED ALERT,CONFUSED,FORGETFUL,VERBALLY RESPONSIVE. AFEBRILE,NOT IN ACUTE DISTRESS. DENIES ANY PAIN OR DISCOMFORT. NO IV ACCESS AT THIS TIME. HEPARIN DRIP TEMPORARILY OFF. PICC LINE NURSE CARLOS AT BEDSIDE TO PUT IN A PICC LINE TOGETHER WITH INSURANCE CODER. SAO2=07% ON O2 @ 2 LPM VIA NC. SINUS TACH WITH 1 DEGREE AVB @ 120/MIN ON THE MONITOR. WILLL CONTINUE TO MONITOR.
--- NOTE | 2017-03-02 20:10 | NUR ---
PICC LINE INSERTION STARTED.
--- NOTE | 2017-03-02 20:30 | NUR ---
PICC LINE INSERTION COMPLETED. PT.TOLERATED PROCEDURE WELL. WILL ORDERS STAT CHEST X-RAY TO VERIFY PLACEMENT.
[2017-03-02] MEDS: SIMVASTATIN 20 MG TAB PO SCH (21:33)
--- NOTE | 2017-03-02 21:34 | NUR ---
DUE MEDICATIONS GIVEN SCHEDULED. PORTABLE CXR ALREADY DONE BUT NO OFFICIAL REPORT AT THIS TIME. PICC LINE NURSE CARLOS HOWEVER SAID PICC MAY ALREADY BE USED.WILL WAIT FOR REPORT.
--- NOTE | 2017-03-02 22:00 | NUR ---
CXR REPORT IS BACK. SPOKE WITH AND RELAYED TO HIM REPORT. HE SAID PICC LINE IS OK TO USE.
[2017-03-02] MEDS: hePARIN / DEXT 5% PREMIX 250 ML IV SCH (22:16)
--- NOTE | 2017-03-02 22:16 | NUR ---
HEPARIN 6000 UNITS IV BOLUS GIVEN AND HEPARIN DRIP RESTARTED @ 1800 UNITS/HR BASED ON WEIGHT=83 KG AND PTT=28.2 PER HEPARIN PROTOCOL. PTT TO BE ORDERED FOR 0415. IV FLUID NS @ 80 ML/HR RESTARTED ALSO VIA RIGHT UPPER ARM PICC LINE.
[2017-03-03] VITALS: BP 125/55
--- NOTE | 2017-03-03 | NUR ---
AWAKE, NOT IN ANY KIND OF DISTRESS. NO PAIN OR DISCOMFORT NOTED. SIDE RAILS UP, CALL LIGHT WITHIN REACH. KEPT WARM AND COMFORTABLE. VS REMAIN STABLE.
--- NOTE | 2017-03-03 02:15 | NUR ---
PT. AGITATED. TRIED TO GET OUT OF BED. WILL CALL .
[2017-03-03] MEDS ORDERED: LORazepam 2 MG/ML VIAL IVP PRN (02:30)
--- NOTE | 2017-03-03 02:51 | NUR ---
ATIVAN 0.5 MG IVP GIVEN ORDERED FOR AGITATION.
[2017-03-03] MEDS ORDERED: LORazepam 2 MG/ML VIAL ONE (02:55)
[2017-03-03 04:00] VITALS: BP 134/73
--- NOTE | 2017-03-03 04:00 | NUR ---
PT. LESS AGITATED, STILL AWAKE. NOT IN ACUTE DISTRESS. NO PAIN OR DSICOMFORT NOTED. VS REAMIN STABLE. WILL CONTINUE TO MONITOR.
--- NOTE | 2017-03-03 04:10 | NUR ---
RESIDENTIAL MENTAL HEALTH WORKER AT BEDSIDE DRAWING BLOOD.
[2017-03-03] MEDS: NACL 0.9% 1,000 ML IV SCH ×3 (04:21→17:17)
[2017-03-03 04:38] LABS: PROTHROMBIN TIME 20.4 secs (10.8-13.4)
[2017-03-03 05:13] LABS: PARTIAL THROMBOPLASTIN TIME > 150.0 secs (22-35.6)
--- NOTE | 2017-03-03 05:15 | NUR ---
JOSE ALBERTO FROM THE LAB.CALLED RE: PTT>150 SECS. HEPARIN DRIP STOPPED. WILL RESUME AFTER 1 HOUR BUT WILL DECREASE DOSE.
[2017-03-03] MEDS: BLOOD GLUCOSE MONITORING 1 DEV DEV FS SCH ×4 (06:01→21:52)
[2017-03-03] MEDS: INSULIN LISPRO SLIDING SCALE 100 UNITS/ML VIAL SUBQ PRN ×4 (06:11→21:53)
--- NOTE | 2017-03-03 06:11 | NUR ---
2 UNITS OF HUMALOG GIVEN SQ FOR BLOOD GLUCOSE OF 155 PER SLIDING SCALE.
[2017-03-03] MEDS: hePARIN / DEXT 5% PREMIX 250 ML IV SCH (06:15)
--- NOTE | 2017-03-03 06:15 | NUR ---
HEPARIN DRIP RESTARTED AT THE RATE OF 1550 UNITS/HR PER PROTOCOL. WILL ORDER PTT 6 HOURS AFTER.
[2017-03-03 06:23] LABS: BASOPHILS # (AUTO) 0.3 K/uL (0.00-0.22); BASOPHILS % (AUTO) 2.2 % (0.0-2.0); EOSINOPHILS # (AUTO) 0.6 K/uL (0-0.4); EOSINOPHILS % (AUTO) 5.4 % (0.0-4.0); HEMATOCRIT 35.3 % (36-48); HEMOGLOBIN 11.4 g/dL (12.0-16.0); LYMPHOCYTES # (AUTO) 2.1 K/uL (2.5-16.5); LYMPHOCYTES % (AUTO) 17.6 % (20.5-51.1); MEAN CORPUSCULAR HEMOGLOBIN 29 pg (27-31); MEAN CORPUSCULAR HGB CONC 32 g/dL (33-37); MEAN CORPUSCULAR VOLUME 89 fL (80-94); MONOCYTES # (AUTO) 0.8 K/uL (0.8-1.0); MONOCYTES % (AUTO) 6.6 % (1.7-9.3); NEUTROPHILS % (AUTO) 68.2 % (42.2-75.2); PLATELET COUNT (AUTO) 187 K/uL (140-450); RED BLOOD CELL COUNT(AUTO) 3.97 MIL/uL (4.20-5.40); RED CELL DISTRIBUTION WIDTH 14.1 % (11.6-13.7); WHITE BLOOD COUNT (AUTO) 11.8 K/uL (4.8-10.8)
[2017-03-03 06:33] LABS: ANION GAP 15.7 (8-16); CALCIUM 8.7 mg/dL (8.5-10.1); CARBON DIOXIDE 21.1 mmol/L (21-32); CHLORIDE 106 mmol/L (98-107); CREATININE 1.8 mg/dL (0.6-1.3); GLUCOSE 156 mg/dL (74-106); POTASSIUM 4.8 mmol/L (3.5-5.1); SODIUM SERUM 138 mmol/L (136-145); UREA NITROGEN, BLOOD 43 mg/dL (7-18)
[2017-03-03 06:43] LABS: MAGNESIUM 2.3 mg/dL (1.8-2.4); PHOSPHORUS 3.6 mg/dL (2.5-4.9)
--- NOTE | 2017-03-03 07:14 | NUR ---
ENDORSED CARE TO EDDI GARCIA.
--- NOTE | 2017-03-03 07:15 | NUR ---
RECEIVED REPORT FROM NIGHT RN AT PT BEDSIDE. PT LETHARGIC, AWAKENS TO MODERATE STIMULI. ON O2 2L NC. NO S/S OF RESPIRATORY DISTRESS. PATIENT DENIES PAIN. ALERT TO SELF, CONFUSED. EDEMA NOTED BLE. PICC LINE IN PLACE TO JESSICA, PATENT AND INTACT. LINENS CLEAN AND DRY. ON HEPARIN DRIP AT 1550 UNITS/HR. BED IN LOWEST POSITION, ALARMS CHECKED. CALL LIGHT WITHIN REACH.
[2017-03-03 08:00] VITALS: BP 127/79
--- NOTE | 2017-03-03 08:05 | NUR ---
FNS CONSULT RECEIVED ON 03/02/17-3369 FOR UNINTENTIONAL WEIGHT LOSS, PT WILL BE SEEN WITHIN 1-2 DAYS OF CONSULT. 03/03/17-03/04/[address]
--- NOTE | 2017-03-03 08:20 | NUR ---
PATIENT IS LETHARGIC, UNABLE TO EAT AT THIS TIME. NO S/S OF RESPIRATORY DISTRESS NOTED.
--- NOTE | 2017-03-03 09:00 | NUR ---
UNABLE TO ADMINISTER AM MEDS DUE TO PT BEING LETHARGIC. WILL CONTINUE TO MONITOR, NO S/S OF ACUTE DISTRESS.
[2017-03-03 09:36] LABS: HEMOGLOBIN A1C 6.5 % (4.8-5.6)
--- NOTE | 2017-03-03 09:40 | NUR ---
CM NOTE FAXED CONCURRENT REVIEW TO [facility] [phone] PHONE DONNA [phone]
--- NOTE | 2017-03-03 10:11 | NUR ---
PT SLEEPING, NO S/S OF ACUTE DISTRESS NOTED.
--- NOTE | 2017-03-03 10:25 | NUR ---
03/03/17 RD INITIAL ASSESSMENT COMPLETED PLEASE REFER TO NUTRITION ASSESSMENT UNDER CARE ACTIVITY FOR ESTIMATED NUTRITIONAL NEEDS. 1. CONTINUE 60G CONSISTENT CARBOHYDRATE DIET 2. CONTINUE APPETITE STIMULANT, MEGACE 1X/DAILY 3. RD TO FOLLOW-UP 2-3 DAYS; HIGH RISK MYNOR PRESTON, EMILY
--- NOTE | 2017-03-03 10:44 | NUR ---
OMAR NOTE FAXED ORDER FOR ROLLING WALKER AND HOME HEALTH FOR PT TO [facility] [phone] ATTN: OMAR THOMPSON [phone] Addendum: 03/03/17 at 1110 by Makenna Moore CM SPOKE WITH OMAR THOMPSON OF [facility] AND SHE SAID SHE WILL WORK ON THE ORDERS AND WILL CALL BACK IN ABOUT AN HOUR.
--- NOTE | 2017-03-03 11:45 | NUR ---
PATIENT AMBULATED WITH PT. BED LINEN CHANGED. PT TOLERATED PO AM MEDS. RESTING IN BED AT THIS TIME. HR 130s, DR. GARCIA NOTIFIED, WILL CONTINUE TO MONITOR.
[2017-03-03 12:00] VITALS: BP 134/68
[2017-03-03] MEDS: CARVEDILOL 12.5 MG TAB PO SCH ×2 (12:07→21:48)
[2017-03-03] MEDS: MEGESTROL 40 MG TAB PO SCH (12:07)
[2017-03-03] MEDS: GABAPENTIN 300 MG CAP PO SCH (12:07)
[2017-03-03] MEDS: FAMOTIDINE 20 MG TAB PO SCH (12:08)
[2017-03-03] MEDS: PARoxetine 20 MG TAB PO SCH (12:08)
[2017-03-03] MEDS: NYSTATIN POW 100 MU/GM 15 GM BTL TP SCH ×2 (12:08→21:50)
[2017-03-03] MEDS: LISINOPRIL 10 MG TAB PO SCH ×2 (12:08→21:48)
--- NOTE | 2017-03-03 12:20 | NUR ---
HEPARIN DRIP DISCONTINUED ORDERED.
--- NOTE | 2017-03-03 12:28 | NUR ---
CM NOTE PER OMAR EMMANUEL PH [phone] [facility] AUTH [id number] PH [phone], ADARSHIA FOR PEDRITO WALKER AUTH R [id number] PH [phone]. KARIS FUENTES.
--- NOTE | 2017-03-03 13:01 | NUR ---
PHYSICAL THERAPY CO-SIGN The Physical Therapy Progress Notes documented by Fluoroscope Operator have been reviewed. I CONCUR W/FINANCIAL ANALYSIS MANAGER NOTE; CONT PER TX PLAN Reviewed/Co-Signed by: Vidhya Hansen PT Documentation Done by: IRIS BERRY FINANCIAL ANALYSIS MANAGER Addendum: 03/03/17 at 1301 by Vidhya Hansen PT Amended: Links added.
--- NOTE | 2017-03-03 13:32 | NUR ---
SS NOTE: PER ILDA FROM [facility], THEY WILL DELIVER PT'S WALKER BEDSIDE TODAY AFTER 1700. Addendum: 03/03/17 at 1332 by Migdalia Bob SS [facility] - [phone]
--- NOTE | 2017-03-03 14:30 | NUR ---
PT TOLERATED PO LUNCH. NO S/S OF ACUTE DISTRESS NOTED.
[2017-03-03 16:00] VITALS: BP 113/66
--- NOTE | 2017-03-03 16:51 | NUR ---
PT SLEEPING IN BED. NO S/S OF ACUTE DISTRESS. WILL CONTINUE TO MONITOR.
[2017-03-03] MEDS ORDERED: WARFARIN 2 MG TAB PO SCH (17:00)
[2017-03-03] MEDS ORDERED: WARFARIN 5 MG TAB PO SCH (17:00)
--- NOTE | 2017-03-03 18:25 | NUR ---
PT EATING DINNER IN BED, TOLERATING WELL. IV SITE PATENT AND INTACT. SPOKE WITH PATIENT'S SON AT BEDSIDE REGARDING PLAN OF CARE. ALL NEEDS MET.
--- NOTE | 2017-03-03 19:30 | NUR ---
ENDORSED PLAN OF CARE TO NIGHT RN AT PT BEDSIDE. PT HAS NO S/S OF ACUTE DISTRESS NOTED.
--- NOTE | 2017-03-03 19:40 | NUR ---
RECEIVED REPORT FROM RADHA MONTAGUE AT BEDSIDE. INITIAL ASSESSMENT COMPLETED. PT AOX4, PT ON BEDREST. PT DENIES PAIN AT THIS TIME. PT HAS A RIGHT UPPER ARM PICC LINE INFUSING FLUIDS WELL. PT'S SKIN IS INTACT. PT ON O2 2L NC. ORIENTED PT TO ROOM AND SURROUNDINGS AND USE OF CALL LIGHT. EXPLAINED PLAN OF CARE TO PT AND SHE VERBALIZES UNDERSTANDING. WILL CONTINUE TO MONITOR PT.
[2017-03-03] MEDS: SIMVASTATIN 20 MG TAB PO SCH (21:48)
--- NOTE | 2017-03-03 21:53 | NUR ---
PT TOLERATED 2100 MEDS WELL. WILL CONTINUE TO MONITOR PT.
[2017-03-03 22:00] VITALS: BP 118/55
--- NOTE | 2017-03-03 23:30 | NUR ---
PT SLEEPING AT THIS TIME, NO SIGNS OF DISTRESS OR DISCOMFORT NOTED. WILL CONTINUE TO MONITOR PT.
[2017-03-04] VITALS: BP 121/72
--- NOTE | 2017-03-04 01:10 | NUR ---
PT HAS WALKER AT BEDSIDE.
--- NOTE | 2017-03-04 01:37 | NUR ---
PT AWAKE ABLE TO FOLLOW COMMAND, WILL CONTINUE TO MONITOR PT.
--- NOTE | 2017-03-04 02:45 | NUR ---
PT WATCHING TV AT THIS TIME, NO SIGNS OF DISTRESS NOTED. WILL CONTINUE TO MONITOR PT.
[2017-03-04 04:00] VITALS: BP 141/78
--- NOTE | 2017-03-04 04:33 | NUR ---
PT STATED THAT SHE HAD AN ACCIDENT AND VOIDED IN BED. PT CHANGED AND ENCOURAGED TO TURN. PT HELPS WITH TURNING/REPOSITIONING. WILL CONTINUE TO MONITOR PT.
[2017-03-04] MEDS: NACL 0.9% 1,000 ML IV SCH (04:39)
--- NOTE | 2017-03-04 05:05 | NUR ---
PT WATCHING TV, PT STABLE, CALL LIGHT WITHIN REACH.
[2017-03-04 05:56] LABS: BASOPHILS # (AUTO) 0.1 K/uL (0.00-0.22); BASOPHILS % (AUTO) 0.9 % (0.0-2.0); EOSINOPHILS # (AUTO) 0.8 K/uL (0-0.4); HEMATOCRIT 32.9 % (36-48); HEMOGLOBIN 10.7 g/dL (12.0-16.0); LYMPHOCYTES # (AUTO) 2.9 K/uL (2.5-16.5); LYMPHOCYTES % (AUTO) 25.8 % (20.5-51.1); MEAN CORPUSCULAR HEMOGLOBIN 29 pg (27-31); MEAN CORPUSCULAR HGB CONC 32 g/dL (33-37); MEAN CORPUSCULAR VOLUME 89 fL (80-94); MONOCYTES # (AUTO) 0.9 K/uL (0.8-1.0); MONOCYTES % (AUTO) 8.1 % (1.7-9.3); NEUTROPHILS # (AUTO) 6.5 K/uL (1.8-7.7); NEUTROPHILS % (AUTO) 58.2 % (42.2-75.2); PLATELET COUNT (AUTO) 166 K/uL (140-450); RED CELL DISTRIBUTION WIDTH 14.5 % (11.6-13.7); WHITE BLOOD COUNT (AUTO) 11.2 K/uL (4.8-10.8)
[2017-03-04 06:21] LABS: INR 3.2 (0.8-1.2); PROTHROMBIN TIME 32.6 secs (10.8-13.4)
[2017-03-04] MEDS: BLOOD GLUCOSE MONITORING 1 DEV DEV FS SCH (06:23)
[2017-03-04 06:24] LABS: CALCIUM 8.5 mg/dL (8.5-10.1); CHLORIDE 110 mmol/L (98-107); CREATININE 1.3 mg/dL (0.6-1.3); GLUCOSE 139 mg/dL (74-106); SODIUM SERUM 141 mmol/L (136-145); UREA NITROGEN, BLOOD 32 mg/dL (7-18)
[2017-03-04 06:35] LABS: MAGNESIUM 2.1 mg/dL (1.8-2.4); PHOSPHORUS 3.2 mg/dL (2.5-4.9)
--- NOTE | 2017-03-04 07:14 | NUR ---
ENDORSED PLAN OF CARE TO RADHA MONTAGUE PT IN STABLE CONDITION.
--- NOTE | 2017-03-04 07:15 | NUR ---
RECEIVED REPORT FROM NIGHT NURSE AT PT BEDSIDE. PT RESTING IN BED. DENIES PAIN. NO S/S OF RESPIRATORY DISTRESS. ALERT AND ORIENTED, FORGETFUL AT TIMES. PT HAS PICC LINE IN PLACE, PATENT AND INTACT. PT HAS WALKER AT BEDSIDE. +2 BILATERAL PEDAL PULSES. SKIN WARM AND DRY. ON O2 2L NC. CALL LIGHT WITHIN REACH. BED IN LOWEST POSITION.
[2017-03-04 08:00] VITALS: BP 155/72
--- NOTE | 2017-03-04 08:21 | NUR ---
OMAR HUYNH SPOKE WITH ARNOLDO [facility] [phone] AUTH# [id number] TO INFORM HER OF THE DISCHARGE ORDER FOR PATIENT TODAY AND SHE SAID PATIENT'S HOME HEALTH WILL START AFTER PATIENT IS DISCHARGED AND THEY WILL GIVE THE PATIENT A CALL TO CONFIRM WHEN THEY ARE COMING Addendum: 03/04/17 at 0829 by Makenna Moore CM NURSE EDDI FUENTES
[2017-03-04] MEDS: CARVEDILOL 12.5 MG TAB PO SCH (08:37)
[2017-03-04] MEDS: GABAPENTIN 300 MG CAP PO SCH (08:37)
[2017-03-04] MEDS: LISINOPRIL 10 MG TAB PO SCH (08:37)
[2017-03-04] MEDS: PARoxetine 20 MG TAB PO SCH (08:37)
[2017-03-04] MEDS: FAMOTIDINE 20 MG TAB PO SCH (08:37)
[2017-03-04] MEDS: MEGESTROL 40 MG TAB PO SCH (08:37)
[2017-03-04] MEDS ORDERED: WARF4TAB PO ×2 (08:39→08:42)
[2017-03-04] MEDS: NYSTATIN POW 100 MU/GM 15 GM BTL TP SCH (08:40)
--- NOTE | 2017-03-04 09:22 | NUR ---
OMAR NOTE RECEIVED CALL FROM [facility] REQUESTING FOR ORDER FOR HOME HEALTH WRITTEN BY ATTENDING PHYSICIAN TO BE SENT TO THEM. FAXED ORDER TO [facility] [phone] ATTN: ARNOLDO RILEY [phone] Addendum: 03/04/17 at 1325 by Makenna Moore CM FAX NOT GOING THROUGH TO [facility] FAX# [phone]. SPOKE WITH ARNOLDO OF [facility] WHO SAID TO FAX IT TO [phone]. FAXED ORDER FOR HOME HEALTH BY DR. LINCOLN TO [facility] FAX# [phone]
--- NOTE | 2017-03-04 10:00 | NUR ---
PT AMBULATED WITH PHYSICAL THERAPY.
--- NOTE | 2017-03-04 10:01 | NUR ---
CM NOTE FAXED CONCURRENT REVIEW TO [facility] [phone] PHONE DONNA [phone]
[2017-03-04] MEDS ORDERED: WARF3TAB PO (11:06)
--- NOTE | 2017-03-04 11:07 | NUR ---
PATIENT OKAY TO BE DISCHARGED HOME WITH PHYSICAL THERAPY FOLLOW UP. SPOKE WITH PATIENT'S SON FOR DISCHARGE IN AFTERNOON.
--- NOTE | 2017-03-04 12:15 | NUR ---
PATIENT SON AT BEDSIDE TO TAKE PATIENT HOME. PT ABLE TO AMBULATE USING WALKER PROVIDED. D/C INSTRUCTIONS WITH FOLLOW UP APPOINTMENT TEACHINGS GIVEN. NEW MEDICATION TEACHING WITH RISKS DISCUSSED WITH PATIENT AND FAMILY. PATIENT IS STABLE. DENIES DISCOMFORT. ALERT AND ORIENTED. PICC LINE REMOVED ORDERED, CANULA INTACT. NO S/S OF ACUTE BLEEDING. PATIENT WHEELED TO FRONT LOBBY.
[2017-03-04] MEDS ORDERED: WARFARIN 2 MG TAB PO SCH (17:00)
== END 2017-03-04 12:15 | disposition home or self-care (01) | DRG 682 ==
LOC: MED 19:20 → MMU 22:58
PROVIDERS: ADMIT Family Medicine; ATTEND Family Medicine
PROC: 02HV33Z Insertion of Infusion Device into Superior Vena Cava, Percutaneous Approach (ICD-10-PCS; principal; 2017-02-28)
PROC: B548ZZA Ultrasonography of Superior Vena Cava, Guidance (ICD-10-PCS; 2017-02-28)
DX: N17.0 Acute kidney failure with tubular necrosis (principal); I50.43 Acute on chronic combined systolic (congestive) and diastolic (congestive) heart failure; E43 Unspecified severe protein-calorie malnutrition; I82.442 Acute embolism and thrombosis of left tibial vein; I13.0 Hypertensive heart and chronic kidney disease with heart failure and stage 1 through stage 4 chronic kidney disease, or unspecified chronic kidney disease; E78.5 Hyperlipidemia, unspecified; F32.9 Major depressive disorder, single episode, unspecified; E11.65 Type 2 diabetes mellitus with hyperglycemia; J44.9 Chronic obstructive pulmonary disease, unspecified; E11.51 Type 2 diabetes mellitus with diabetic peripheral angiopathy without gangrene; I70.209 Unspecified atherosclerosis of native arteries of extremities, unspecified extremity; E66.01 Morbid (severe) obesity due to excess calories; E11.22 Type 2 diabetes mellitus with diabetic chronic kidney disease; N18.9 Chronic kidney disease, unspecified; Z53.29 Procedure and treatment not carried out because of patient's decision for other reasons; Z68.33 Body mass index [BMI] 33.0-33.9, adult; Z87.891 Personal history of nicotine dependence; Z79.4 Long term (current) use of insulin; Z79.899 Other long term (current) drug therapy
CPT/HCPCS: 36415; 71010; 80048; 81001; 82040; 82948; 83036; 83735; 84100; 84436; 84439; 84443; 84479; 84484; 85025; 85610; 85730; 87081; 87086; 93005; 93925; 93971; 96374; 96375; 97110; 97116; 97530; 99291; C1751; C1758; J1644; J1815; J2060; J7030; Q0092

== ENCOUNTER 2021-08-17 10:01 | Emergency (ER) | payer MEDICARE, OTHER ==
[~2021-08-17] VITALS: Ht 152.4 cm; Wt 85.3 kg
[~2021-08-17 10:01] MED LIST changes: -ALBU0.0946 IH; -AMLO5TAB4 PO; -BLOO1STR10 FS; +BLOO1STR56 FS; -CARV12.5 PO; +CARV12.52 PO; -FURO-570 PO; -HYDR-4446 PO; +INSU-1163 SQ; -INSU100S45 SUBQ; +LANTUS SC; -LISI-420 PO; +LISI-486 PO; +MEGE40SU PO; +METF-1022 PO; -METF500T4 PO; +NYST1POW8 TP; +PARO-42 PO; -PAX20 PO; +RANI150C PO; +SIMV-31 PO; -SIMV20TA6 PO; +WARF3TAB18 PO
[2021-08-17 10:16] VITALS: BP 130/75
--- NOTE | 2021-08-17 10:20 | NUR ---
PT BASELINE IS CONFUSED SOMETIMES, SON IN TRIAGE ROOM FOR HELP AT THIS TIME
--- NOTE | 2021-08-17 10:24 | NUR ---
ADRIA ([facility]) [phone]
--- NOTE | 2021-08-17 10:30 | NUR ---
PT RETURNED TO LOBBY WITH SON AT THIS TIME
--- NOTE | 2021-08-17 10:35 | NUR ---
PT AMBULATED TO ER BED 4
[2021-08-17] MEDS ORDERED: DEXTROSE 50% 50 ML SYR IVP ONE ×2 (12:40→12:45)
--- NOTE | 2021-08-17 13:04 | NUR ---
BS TAKEN 25, MEDICATED WITH D50 IVP PER ORDER, BS RETAKEN 153. PT GCS 15. PT REFUSING TO BE ADMITTED TO STAY IN ER FOR FURTHER WORK UP. PT REQUESTING TO LEAVE. DR FELICIANO AT BEDSIDE SPEAKING TO PT AND SON REGARDING RISKS OF LEAVING AMA. PT ADAMENT ABOUT LEAVING. OPAL GIVEN TO PT PT AMBULATES TO BATHROOM WITH STEADY GAIT. IV REMOVED NO ACTIVE BLEEDING.
[2021-08-17 13:11] VITALS: BP 122/70
[2021-08-17 13:18] LABS: BASOPHILS % (AUTO) 0.3 % (0.0-2.0); EOSINOPHILS # (AUTO) 0.3 K/uL (0-0.4); EOSINOPHILS % (AUTO) 3.3 % (0.0-4.0); HEMATOCRIT 36.7 % (36-48); HEMOGLOBIN 12.3 g/dL (12.0-16.0); LYMPHOCYTES # (AUTO) 2.1 K/uL (2.5-16.5); LYMPHOCYTES % (AUTO) 25.3 % (20.5-51.1); MEAN CORPUSCULAR HEMOGLOBIN 30 pg (27-31); MEAN CORPUSCULAR HGB CONC 33 g/dL (33-37); MEAN CORPUSCULAR VOLUME 90.7 fL (80-94); MONOCYTES # (AUTO) 0.6 K/uL (0.8-1.0); MONOCYTES % (AUTO) 7.8 % (1.7-9.3); NEUTROPHILS # (AUTO) 5.2 K/uL (1.8-7.7); NEUTROPHILS % (AUTO) 63.3 % (42.2-75.2); PLATELET COUNT (AUTO) 191 K/uL (140-450); RED BLOOD CELL COUNT(AUTO) 4.05 MIL/uL (4.20-5.40); RED CELL DISTRIBUTION WIDTH 15.2 % (11.6-13.7); WHITE BLOOD COUNT (AUTO) 8.3 K/uL (4.8-10.8)
[2021-08-17 14:18] LABS: ALBUMIN 2.7 g/dL (3.4-5.0); ANION GAP 14.2 (8-16); ASPARTATE AMINOTRANSFERASE 30 U/L (15-37); CARBON DIOXIDE 27.1 mmol/L (21-32); CHLORIDE 104 mmol/L (98-107); CREATININE 1.4 mg/dL (0.6-1.3); GLUCOSE 218 mg/dL (74-106); POTASSIUM 4.3 mmol/L (3.5-5.1); SODIUM SERUM 141 mmol/L (136-145); TOTAL BILIRUBIN 0.4 mg/dL (0.0-1.0); UREA NITROGEN, BLOOD 28 mg/dL (7-18)
== END 2021-08-17 13:04 | disposition left against medical advice (07) ==
LOC: MED 10:01
DX: I11.0 Hypertensive heart disease with heart failure (principal); I50.9 Heart failure, unspecified; R41.82 Altered mental status, unspecified; E87.6 Hypokalemia; E11.9 Type 2 diabetes mellitus without complications; E78.00 Pure hypercholesterolemia, unspecified
CPT/HCPCS: 80053; 84484; 85025; 87804; 93005; 96374; 99284